=== PATIENT | male | born 1950 | race Caucasian/White ===

== ENCOUNTER 2020-03-24 08:18 | Inpatient (IN) | payer MEDICARE ==
--- NOTE | 2020-03-24 08:38 | ED ---
General Adult HPI - General Chief complaint: Shortness of Breath Stated complaint: +COVID Time Seen by Provider: 03/24/20 08:28 Source: patient, EMS Mode of arrival: EMS Limitations: no limitations - History of Present Illness Initial comments: Dictation was produced using [employer] dictation software. please excuse any grammatical, word or spelling errors. This patient was cared for during a federal and state declared state of emergency secondary to Covid 19 Chief Complaint: 69-year-old male with past medical history of rectal bleeding presents today with shortness of breath History of Present Illness: 69-year-old male tested positive for coronavirus 6 days ago. He's been short of breath for approximately one week. Patient states he's been dyspneic. He was seen his primary care physician's office approximately one week ago where he was tested and had a positive result. Patient was at home when he has been progressively become more short of breath. Denies any constitutional symptoms. No fevers. called EMS. Patient states that been progressively more dyspneic. He denies any chest pain. No lower extremity symptoms. No history of blood clots. Denies any serious comorbidities. EMS reports the patient was hypoxic into the 70% on room air. He does not lie on chronic supplemental oxygen. The ROS documented in this emergency department record has been reviewed and confirmed by me. Those systems with pertinent positive or negative responses have been documented in the HPI. All other systems are other negative and/or noncontributory. PHYSICAL EXAM: General Impression: Alert and oriented x3 HEENT: Normocephalic atraumatic, extra-ocular movements intact, pupils equal and reactive to light bilaterally, mucous membranes moist. Cardiovascular: Heart regular rate and rhythm Chest: 6 word sentences, no retractions, no tachypnea, mildly dyspneic Abdomen: abdomen soft, non-tender, non-distended, no organomegaly Musculoskeletal: Pulses present and equal in all extremities, no peripheral edema Motor: no focal deficits noted Neurological: CN II-XII grossly intact, no focal motor or sensory deficits noted Skin: Intact with no visualized rashes Psych: Normal affect and mood ED course: 69-year-old male presents with Covid 19 syndrome. Vital signs upon arrival shows 91% on 6 L nasal cannula, heart rate of 102. He has respiratory rate of 20 and does appear mildly dyspneic. After evaluation obtained. CBC is unremarkable. There is level cytopenia. Coag panel is negative. D-dimer is elevated 1.99 CT of the chest shows no evidence of pulmonary embolism. Metabolic panel shows sodium 132. BUN of 25. Lactic acidosis 2.3. CRP 166, lactate dehydrogenase of 1270. Chest x-ray shows bilateral diffuse infiltrates. Clinical presentation consistent with: 19 pneumonia. Patient given 50 mg of Decadron. Pulmonology was consulted. They ordered rib does appear from patient. Patient be admitted to the hospital for hypoxic respiratory failure secondary to: 19 pneumonia. Patient is agreeable with plan. At this point he is stable on supplemental oxygen. No indication for ICU admission at this time given ICU bed shortages during this current pandemic. EKG interpretation: Ventricular rate 101, sinus tachycardia, AZ interval 142, QRS 86, QTC 453. No AZ prolongation, no QTC prolongation, no ST or T-wave changes noted. Overall, this EKG is unremarkable - Related Data Home Medications Medication Instructions Recorded Confirmed No Known Home Medications 03/24/20 03/24/20 Allergies Allergy/AdvReac Type Severity Reaction Status Date / Time No Known Allergies Allergy Verified 03/24/20 09:29 Review of Systems ROS Statement: Those systems with pertinent positive or pertinent negative responses have been documented in the HPI. ROS Other: All systems not noted in ROS Statement are negative. Past Medical History Past Medical History: Respiratory Disorder Additional Past Medical History / Comment(s): CURRENT: RECTAL BLEEDING, HGB HAS DROPPED FROM 15 TO 7 IN THE PAST SEVERAL MONTHS. DIVERTICULOSIS. History of Any Multi-Drug Resistant Organisms: None Reported Past Surgical History: No Surgical Hx Reported Additional Past Surgical History / Comment(s): BILATERAL CATARACT WITH IMPLANTS Past Anesthesia/Blood Transfusion Reactions: No Reported Reaction Past Psychological History: No Psychological Hx Reported Smoking Status: Never smoker Past Alcohol Use History: None Reported Past Drug Use History: None Reported General Exam Limitations: no limitations Course Vital Signs 03/24/20 03/24/20 08:20 08:28 Temperature 98.0 F Pulse Rate 102 H Respiratory 18 20 Rate Blood Pressure 105/72 O2 Sat by Pulse 91 L Oximetry Medical Decision Making - Lab Data Result diagrams: 03/24/20 08:33 03/24/20 08:33 Lab Results 03/24/20 03/24/20 03/24/20 Range/Units 08:33 08:33 08:33 WBC 4.6 (3.8-10.6) k/uL RBC 5.02 (4.30-5.90) m/uL Hgb 14.6 (13.0-17.5) gm/dL Hct 43.0 (39.0-53.0) % MCV 85.6 (80.0-100.0) fL MCH 29.2 (25.0-35.0) pg MCHC 34.1 (31.0-37.0) g/dL RDW 14.2 (11.5-15.5) % Plt Count 209 (150-450) k/uL MPV 8.0 Neutrophils % 87 % Lymphocytes % 8 % Monocytes % 2 % Eosinophils % 1 % Basophils % 1 % Neutrophils # 4.0 (1.3-7.7) k/uL Lymphocytes # 0.4 L (1.0-4.8) k/uL Monocytes # 0.1 (0-1.0) k/uL Eosinophils # 0.0 (0-0.7) k/uL Basophils # 0.0 (0-0.2) k/uL PT 10.3 (9.0-12.0) sec INR 1.0 (<1.2) APTT 24.5 (22.0-30.0) sec Fibrinogen (200-500) mg/dL D-Dimer 1.99 H (<0.60) mg/L FEU Sodium 132 L (137-145) mmol/L Potassium 3.6 (3.5-5.1) mmol/L Chloride 95 L (98-107) mmol/L Carbon Dioxide 31 H (22-30) mmol/L Anion Gap 6 mmol/L BUN 25 H (9-20) mg/dL Creatinine 1.03 (0.66-1.25) mg/dL Est GFR (CKD-EPI)AfAm 84 (>60 ml/min/1.73 sqM) Est GFR (CKD-EPI)NonAf 73 (>60 ml/min/1.73 sqM) Glucose 114 H (74-99) mg/dL Lactic Ac Sepsis Rflx Plasma Lactic Acid Chuy (0.7-2.0) mmol/L Calcium 8.5 (8.4-10.2) mg/dL Magnesium 2.6 H (1.6-2.3) mg/dL Total Bilirubin 1.7 H (0.2-1.3) mg/dL AST 78 H (17-59) U/L ALT 43 (4-49) U/L Alkaline Phosphatase 67 (38-126) U/L Lactate Dehydrogenase 1270 H (313-618) U/L Creatine Kinase (55-170) U/L C-Reactive Protein 166.3 H (<10.0) mg/L Total Protein 6.4 (6.3-8.2) g/dL Albumin 3.1 L (3.5-5.0) g/dL 03/24/20 03/24/20 03/24/20 Range/Units 08:33 08:33 08:33 WBC (3.8-10.6) k/uL RBC (4.30-5.90) m/uL Hgb (13.0-17.5) gm/dL Hct (39.0-53.0) % MCV (80.0-100.0) fL MCH (25.0-35.0) pg MCHC (31.0-37.0) g/dL RDW (11.5-15.5) % Plt Count (150-450) k/uL MPV Neutrophils % % Lymphocytes % % Monocytes % % Eosinophils % % Basophils % % Neutrophils # (1.3-7.7) k/uL Lymphocytes # (1.0-4.8) k/uL Monocytes # (0-1.0) k/uL Eosinophils # (0-0.7) k/uL Basophils # (0-0.2) k/uL PT (9.0-12.0) sec INR (<1.2) APTT (22.0-30.0) sec Fibrinogen 641 H (200-500) mg/dL D-Dimer (<0.60) mg/L FEU Sodium (137-145) mmol/L Potassium (3.5-5.1) mmol/L Chloride (98-107) mmol/L Carbon Dioxide (22-30) mmol/L Anion Gap mmol/L BUN (9-20) mg/dL Creatinine (0.66-1.25) mg/dL Est GFR (CKD-EPI)AfAm (>60 ml/min/1.73 sqM) Est GFR (CKD-EPI)NonAf (>60 ml/min/1.73 sqM) Glucose (74-99) mg/dL Lactic Ac Sepsis Rflx Plasma Lactic Acid Chuy 2.3 H* (0.7-2.0) mmol/L Calcium (8.4-10.2) mg/dL Magnesium (1.6-2.3) mg/dL Total Bilirubin (0.2-1.3) mg/dL AST (17-59) U/L ALT (4-49) U/L Alkaline Phosphatase (38-126) U/L Lactate Dehydrogenase (313-618) U/L Creatine Kinase 223 H (55-170) U/L C-Reactive Protein (<10.0) mg/L Total Protein (6.3-8.2) g/dL Albumin (3.5-5.0) g/dL 03/24/20 Range/Units 09:18 WBC (3.8-10.6) k/uL RBC (4.30-5.90) m/uL Hgb (13.0-17.5) gm/dL Hct (39.0-53.0) % MCV (80.0-100.0) fL MCH (25.0-35.0) pg MCHC (31.0-37.0) g/dL RDW (11.5-15.5) % Plt Count (150-450) k/uL MPV Neutrophils % % Lymphocytes % % Monocytes % % Eosinophils % % Basophils % % Neutrophils # (1.3-7.7) k/uL Lymphocytes # (1.0-4.8) k/uL Monocytes # (0-1.0) k/uL Eosinophils # (0-0.7) k/uL Basophils # (0-0.2) k/uL PT (9.0-12.0) sec INR (<1.2) APTT (22.0-30.0) sec Fibrinogen (200-500) mg/dL D-Dimer (<0.60) mg/L FEU Sodium (137-145) mmol/L Potassium (3.5-5.1) mmol/L Chloride (98-107) mmol/L Carbon Dioxide (22-30) mmol/L Anion Gap mmol/L BUN (9-20) mg/dL Creatinine (0.66-1.25) mg/dL Est GFR (CKD-EPI)AfAm (>60 ml/min/1.73 sqM) Est GFR (CKD-EPI)NonAf (>60 ml/min/1.73 sqM) Glucose (74-99) mg/dL Lactic Ac Sepsis Rflx Y Plasma Lactic Acid Chuy (0.7-2.0) mmol/L Calcium (8.4-10.2) mg/dL Magnesium (1.6-2.3) mg/dL Total Bilirubin (0.2-1.3) mg/dL AST (17-59) U/L ALT (4-49) U/L Alkaline Phosphatase (38-126) U/L Lactate Dehydrogenase (313-618) U/L Creatine Kinase (55-170) U/L C-Reactive Protein (<10.0) mg/L Total Protein (6.3-8.2) g/dL Albumin (3.5-5.0) g/dL Critical Care Time Critical Care Time: Yes Total Critical Care Time: 33 Disposition Clinical Impression: COVID-19 Disposition: ADMITTED IP TO THIS [facility] Condition: Critical Referrals: Abdi Gage MD [STAFF PHYSICIAN] - 1-2 days Decision Time: 11:48
[2020-03-24 09:00] LABS: Basophils % (A) 1 %; Eosinophils % (A) 1 %; HGB 14.6 gm/dL (13.0-17.5); Lymphocytes # (A) 0.4 k/uL (1.0-4.8); Lymphocytes % (A) 8 %; MCH 29.2 pg (25.0-35.0); MCHC 34.1 g/dL (31.0-37.0); MCV 85.6 fL (80.0-100.0); Monocytes # (A) 0.1 k/uL (0-1.0); Monocytes % (A) 2 %; Neutrophils % (A) 87 %; Platelet Count 209 k/uL (150-450); RBC 5.02 m/uL (4.30-5.90); RDW 14.2 % (11.5-15.5); WBC 4.6 k/uL (3.8-10.6)
[2020-03-24 09:15] LABS: Albumin 3.1 g/dL (3.5-5.0); Calcium 8.5 mg/dL (8.4-10.2); Magnesium 2.6 mg/dL (1.6-2.3); Partial Thromboplastin Time 24.5 sec (22.0-30.0); Potassium 3.6 mmol/L (3.5-5.1); Prothrombin Time 10.3 sec (9.0-12.0); Total Bilirubin 1.7 mg/dL (0.2-1.3); Total Protein 6.4 g/dL (6.3-8.2)
[2020-03-24 09:26] LABS: C Reactive Protein 166.3 mg/L (<10.0)
--- NOTE | 2020-03-24 09:37 | XR ---
EXAMINATION TYPE: XR chest 1V portable DATE OF EXAM: 03/24/2020 COMPARISON: NONE HISTORY: Shortness of breath TECHNIQUE: Single frontal view of the chest is obtained. FINDINGS: Diffuse bilateral airspace disease. Tiny bilateral effusions. No pneumothorax. Heart size prominent. Arthropathy of the shoulders. IMPRESSION: Diffuse bilateral airspace disease correlate for pneumonia.
[2020-03-24] MEDS ORDERED: DEXAMETHASONE SOD PHOSPHATE 10 MG/ML 1 ML VIAL IV STA (09:42)
[2020-03-24] MEDS ORDERED: ACETAMINOPHEN TAB 325 MG TAB PO PRN (10:08)
[2020-03-24] MEDS ORDERED: SODIUM CHLORIDE 0.9% 1,000 ML IV STA (10:12)
[2020-03-24] MEDS ORDERED: ENOXAPARIN 80 MG/0.8 ML SYRINGE SQ SCH (10:15)
[2020-03-24 10:44] LABS: D-Dimer 1.99 mg/L FEU (<0.60)
[2020-03-24] MEDS ORDERED: REMDESIVIR (EUA) 200 MG in SODIUM CHLORIDE 0.9% 250 ML IVPB ONE (11:00)
--- NOTE | 2020-03-24 11:42 | CT ---
EXAMINATION TYPE: CT angio chest DATE OF EXAM: 03/24/2020 COMPARISON: None HISTORY: Elevated D dimer CT DLP: 371.7 mGycm CONTRAST: CT chest with contrast and 3D reconstruction with MIP imaging is performed with IV Contrast, patient injected with 75 mL of Isovue 370. Contrast-enhanced CT of the chest was performed through the course of the pulmonary arteries with yvonne g and mediastinal window settings submitted. 3D reconstruction with MIP imaging was also performed. PULMONARY ARTERIES: The pulmonary arteries and their major tributaries are patent. I do not see kameron dence for sizable filling defect to suggest pulmonary embolic process. LUNGS: Diffuse airspace disease is seen bilaterally. Correlate for underlying Covid 19 pneumonia. No pleural seen. MEDIASTINUM: Thoracic aorta is of normal caliber,however, evaluation is limited given timing of the contrast bolus. If there is concern for thoracic aortic pathology consider HA. Correlate clinicall y . The heart is not enlarged. No evidence for mediastinal mass. No mediastinal lymph nodes greater than 1cm. HILAR STRUCTURES: No evidence for mass. No hilar lymph nodes greater than 1 cm. UPPER ABDOMEN: No significant abnormality is seen. IMPRESSION: 1. No evidence for Pulmonary embolism at this time. 2. Correlate for Covid 19 pneumonia.
[2020-03-24] MEDS: ENOXAPARIN 40 MG/0.4 ML SYRINGE SQ SCH (11:43)
[2020-03-24] MEDS ORDERED: NALOXONE 0.4 MG/ML 1 ML VIAL IV PRN (11:48)
[2020-03-24 15:31] LABS: Ferritin 912.2 ng/mL (22.0-322.0)
[2020-03-24] MEDS: ZINC SULFATE 220 MG CAP PO SCH (16:50)
[2020-03-24] MEDS: SODIUM CHLORIDE 0.9% 1,000 ML IV SCH (16:50)
[2020-03-24] MEDS: FAMOTIDINE 20 MG TAB PO SCH ×2 (16:50→21:21)
--- NOTE | 2020-03-24 18:06 | P.CNPUL ---
History of Present Illness Consult date: 03/24/20 Requesting physician: Andriy Aguilar Reason for consult: dyspnea, hypoxemia, pneumonia Chief complaint: Shortness of breath, positive COVID 19 test, hypoxemia History of present illness: 69-year-old white male patient of Dr. Chester, who presented to the emergency department on 03/24/2020 with complaints of worsening shortness of breath, and patient tested positive for coronavirus 6 days ago. His been short of breath for approximately one week, patient's was also having symptoms, and they were seen by their primary care provider a week ago and both tested positive. Patient was experiencing progressive shortness of breath. Denies any fevers, his called EMS today, he was brought into the emergency department. Denies any chest pain, denies any significant cough, his pulse ox was only 70% on room air in the ambulance. She was placed on supplemental oxygen, currently on 6 L per high flow nasal cannula his pulse ox of 92%. Chest x-ray showed diffuse bilateral airspace disease, lab work was reviewed showing lymphopenia with lymphocyte count of 0.4, d-dimer of 1.99, sodium 132, potassium is 3.6, chloride is 95, CO2 31, B1 is 25 creatinine is 1.03, plasma lactic acid is 2.3, AST was 78, ALT and alkaline phosphatase were within normal limits, ferritin and fibrinogen were elevated, at 912, and 641 respectively, LDH was 1270, and CRP was 166, pro calcitonin level was 0.51. CTA chest showed no evidence of pulmonary embolism, it did show diffuse airspace disease bilaterally. Patient has had low-grade fevers while in the emergency department, his oxygenation needs increased from 6 L to 15 L, his pulse ox is 91%, he was started on IV Decadron, we started the patient on Remdesivir today, he is on Pepcid, he is on Lovenox 40 mg every 24 hours, he is on IV hydration with point in the setting at a rate of 75 ML per hour. Review of Systems All systems: negative Constitutional: Denies chills, Denies fever Eyes: denies blurred vision, denies pain Ears, nose, mouth and throat: Denies headache, Denies sore throat Cardiovascular: Denies chest pain, Denies shortness of breath Respiratory: Reports dyspnea, Denies cough Gastrointestinal: Denies abdominal pain, Denies diarrhea, Denies nausea, Denies vomiting Musculoskeletal: Denies myalgias Integumentary: Denies pruritus, Denies rash Neurological: Denies numbness, Denies weakness Psychiatric: Denies anxiety, Denies depression Endocrine: Denies fatigue, Denies weight change Past Medical History Past Medical History: Respiratory Disorder Additional Past Medical History / Comment(s): CURRENT: RECTAL BLEEDING, HGB HAS DROPPED FROM 15 TO 7 IN THE PAST SEVERAL MONTHS. DIVERTICULOSIS. History of Any Multi-Drug Resistant Organisms: None Reported Past Surgical History: No Surgical Hx Reported Additional Past Surgical History / Comment(s): BILATERAL CATARACT WITH IMPLANTS Past Anesthesia/Blood Transfusion Reactions: No Reported Reaction Past Psychological History: No Psychological Hx Reported Smoking Status: Never smoker Past Alcohol Use History: None Reported Past Drug Use History: None Reported Medications and Allergies Home Medications Medication Instructions Recorded Confirmed Type No Known Home Medications 03/24/20 03/24/20 History Allergies Allergy/AdvReac Type Severity Reaction Status Date / Time No Known Allergies Allergy Verified 03/24/20 09:29 Physical Exam Vitals: Vital Signs Temp Pulse Resp BP Pulse Ox 03/24/20 17:38 94 18 120/98 91 L 03/24/20 16:52 98.6 F 88 16 126/81 92 L 03/24/20 13:50 99.6 F 93 16 127/78 92 L 03/24/20 11:51 99.8 F H 96 18 117/81 90 L 03/24/20 08:28 20 03/24/20 08:20 98.0 F 102 H 18 105/72 91 L Intake and Output 03/24/20 03/24/20 03/24/20 06:59 14:59 22:59 Other: Weight 77.111 kg GENERAL EXAM: Alert, pleasant, 69-year-old white male, on 6 L of oxygen and the pulse ox of 92%, comfortable in no apparent distress. HEAD: Normocephalic/atraumatic. EYES: Normal reaction of pupils, equal size. Conjunctiva pink, sclera white. NOSE: Clear with pink turbinates. THROAT: No erythema or exudates. NECK: No masses, no JVD, no thyroid enlargement, no adenopathy. CHEST: No chest wall deformity. Symmetrical expansion. LUNGS: Equal air entry with no crackles, wheeze, rhonchi or dullness. CVS: Regular rate and rhythm, normal S1 and S2, no gallops, no murmurs, no rubs ABDOMEN: Soft, nontender. No hepatosplenomegaly, normal bowel sounds, no guarding or rigidity. EXTREMITIES: No clubbing, no edema, no cyanosis, 2+ pulses and upper and lower extremities. MUSCULOSKELETAL: Muscle strength and tone normal. SPINE: No scoliosis or deformity SKIN: No rashes CENTRAL NERVOUS SYSTEM: Alert and oriented -3. No focal deficits, tone is normal in all 4 extremities. PSYCHIATRIC: Alert and oriented -3. Appropriate affect. Intact judgment and insight. Results - Laboratory Findings CBC and BMP: 03/24/20 08:33 03/24/20 08:33 PT/INR, D-dimer PT 10.3 sec (9.0-12.0) 03/24/20 08:33 INR 1.0 (<1.2) 03/24/20 08:33 D-Dimer 1.99 mg/L FEU (<0.60) H 03/24/20 08:33 Abnormal lab findings: Abnormal Labs 03/24/20 03/24/20 03/24/20 08:33 08:33 08:33 Lymphocytes # 0.4 L Fibrinogen D-Dimer 1.99 H Sodium 132 L Chloride 95 L Carbon Dioxide 31 H BUN 25 H Glucose 114 H Plasma Lactic Acid Chuy Magnesium 2.6 H Ferritin 912.2 H Total Bilirubin 1.7 H AST 78 H Lactate Dehydrogenase 1270 H Creatine Kinase C-Reactive Protein 166.3 H Albumin 3.1 L Procalcitonin 03/24/20 03/24/20 03/24/20 08:33 08:33 08:33 Lymphocytes # Fibrinogen 641 H D-Dimer Sodium Chloride Carbon Dioxide BUN Glucose Plasma Lactic Acid Chuy 2.3 H* Magnesium Ferritin Total Bilirubin AST Lactate Dehydrogenase Creatine Kinase C-Reactive Protein Albumin Procalcitonin 0.51 H 03/24/20 08:33 Lymphocytes # Fibrinogen D-Dimer Sodium Chloride Carbon Dioxide BUN Glucose Plasma Lactic Acid Chuy Magnesium Ferritin Total Bilirubin AST Lactate Dehydrogenase Creatine Kinase 223 H C-Reactive Protein Albumin Procalcitonin - Diagnostic Findings Chest x-ray: report reviewed, image reviewed CT scan - chest: report reviewed, image reviewed Assessment and Plan Plan: Assessment: #1. Acute and severe hypoxic respiratory failure related to acute Covid 19 related pneumonia, started on Remdesivir, with onset of symptoms of weeks ago #2. Shortness of breath, severe hypoxemia related to the above #3. Increased inflammatory markers related acute coronavirus infection #4. Spouse positive for Covid 19 infection #5. Never smoker Plan: Continue Decadron, started on Remdesivir, Lovenox, gentle IV hydration, zinc sulfate, vitamin C, Pepcid, vitamin D, continue to follow inflammatory markers, oxygenation pattern and febrile pattern. We'll continue to follow I performed a history & physical examination of the patient and discussed their management with my nurse practitioner, Araseli Leo. I reviewed the nurse practitioner's note and agree with the documented findings and plan of care. Lung sounds are positive for diminished breath sounds The findings and the impression was discussed with the patient. I attest to the documentation by the nurse practitioner. Time with Patient: Greater than 30
[2020-03-24] MEDS ORDERED: ONDANSETRON 4 MG/2 ML VIAL IVP PRN (19:06)
[2020-03-24] MEDS ORDERED: MAG HYDROX/AL HYDROX/SIMETH 30 ML CUP PO PRN (19:06)
[2020-03-24] MEDS ORDERED: CALCIUM CARBONATE 500 MG CHEWABLE PO PRN (19:06)
[2020-03-24] MEDS ORDERED: MAGNESIUM HYDROXIDE 2,400 MG/10 ML CUP PO PRN (19:06)
[2020-03-24] MEDS ORDERED: LACTULOSE 20 GM/30 ML CUP PO PRN (19:06)
--- NOTE | 2020-03-24 19:06 | P.HPIM ---
History of Present Illness H&P Date: 03/24/20 Chief Complaint: Short of breath History of presenting complaint: This is a pleasant 69-year-old patient of Dr. Chester. Patient tested positive for COVID 6 days ago. Patient has been progressively getting more and more short of breath. He was tested positive and his family doctor. His current decreased appetite. Diet. Loss of taste. No diarrhea. Some mild GI. EMS r eported patient to be hypoxic and a 70% on room air. Prior to this patient is feeling fine. Patient did not report any fever. He was 91% on 6 L in the ER. Review of systems: GEN.: Tired loss of appetite weak EYES: None HEENT: None NECK: None RESPIRATORY: As above CARDIOVASCULAR: None GASTROINTESTINAL: None GENITOURINARY: None MUSCULOSKELETAL: None LYMPHATICS: None HEMATOLOGICAL: None PSYCHIATRY: None NEUROLOGICAL: None INVESTIGATIONS, reviewed in the clinical context: White count 4.6 hemoglobin 14.6 platelets 209 lymphocyte 0.4 d-dimer 1.99 sodium 132 potassium 3.6 bun 25 creatinine 1.03 Lactic acid 2.3 LDH 1270 CRP 166.3 albumin 3.10 calcitonin 0.51 EKG tracing personally reviewed by me-normal sinus rhythm, rate of 101 CT angina chest-negative for PE. Diffuse airspace disease bilaterally. Chest x-ray film personally reviewed by me-bilateral infiltrates Assessment: -Acute bilateral pneumonia from COVID 19 diagnosed a week prior to presentation. -Acute hypoxic respiratory failure from above -Lactic acidosis from above -Mild hyponatremia from decreased fluid intake -Clinical dehydration -Hypoalbuminemia-acute phase reactant Plan: Patient be started on steroids, Lovenox, zinc, Pepcid, vitamin D3. Remdesivir. Oxygen supplemented. Droplet precaution. Care was discussed with the patient question also. Pulmonary consulted. Past Medical History Past Medical History: Respiratory Disorder Additional Past Medical History / Comment(s): CURRENT: RECTAL BLEEDING, HGB HAS DROPPED FROM 15 TO 7 IN THE PAST SEVERAL MONTHS. DIVERTICULOSIS. History of Any Multi-Drug Resistant Organisms: None Reported Past Surgical History: No Surgical Hx Reported Additional Past Surgical History / Comment(s): BILATERAL CATARACT WITH IMPLANTS Past Anesthesia/Blood Transfusion Reactions: No Reported Reaction Past Psychological History: No Psychological Hx Reported Smoking Status: Never smoker Past Alcohol Use History: None Reported Past Drug Use History: None Reported Medications and Allergies Home Medications Medication Instructions Recorded Confirmed Type No Known Home Medications 03/24/20 03/24/20 History Allergies Allergy/AdvReac Type Severity Reaction Status Date / Time No Known Allergies Allergy Verified 03/24/20 09:29 Physical Exam Vitals: Vital Signs Temp Pulse Resp BP Pulse Ox 03/24/20 18:35 98.5 F 88 16 109/71 93 L 03/24/20 17:38 94 18 120/98 91 L 03/24/20 16:52 98.6 F 88 16 126/81 92 L 03/24/20 13:50 99.6 F 93 16 127/78 92 L 03/24/20 11:51 99.8 F H 96 18 117/81 90 L 03/24/20 08:28 20 03/24/20 08:20 98.0 F 102 H 18 105/72 91 L Intake and Output 03/24/20 03/24/20 03/24/20 06:59 14:59 22:59 Other: Weight 77.111 kg Results CBC & Chem 7: 03/24/20 08:33 03/24/20 08:33 Labs: Abnormal Lab Results - Last 24 Hours (Table) 03/24/20 03/24/20 03/24/20 Range/Units 08:33 08:33 08:33 Lymphocytes # 0.4 L (1.0-4.8) k/uL Fibrinogen (200-500) mg/dL D-Dimer 1.99 H (<0.60) mg/L FEU Sodium 132 L (137-145) mmol/L Chloride 95 L (98-107) mmol/L Carbon Dioxide 31 H (22-30) mmol/L BUN 25 H (9-20) mg/dL Glucose 114 H (74-99) mg/dL Plasma Lactic Acid Chuy (0.7-2.0) mmol/L Magnesium 2.6 H (1.6-2.3) mg/dL Ferritin 912.2 H (22.0-322.0) ng/mL Total Bilirubin 1.7 H (0.2-1.3) mg/dL AST 78 H (17-59) U/L Lactate Dehydrogenase 1270 H (313-618) U/L Creatine Kinase (55-170) U/L C-Reactive Protein 166.3 H (<10.0) mg/L Albumin 3.1 L (3.5-5.0) g/dL Procalcitonin (0.02-0.09) ng/mL 03/24/20 03/24/20 03/24/20 Range/Units 08:33 08:33 08:33 Lymphocytes # (1.0-4.8) k/uL Fibrinogen 641 H (200-500) mg/dL D-Dimer (<0.60) mg/L FEU Sodium (137-145) mmol/L Chloride (98-107) mmol/L Carbon Dioxide (22-30) mmol/L BUN (9-20) mg/dL Glucose (74-99) mg/dL Plasma Lactic Acid Chuy 2.3 H* (0.7-2.0) mmol/L Magnesium (1.6-2.3) mg/dL Ferritin (22.0-322.0) ng/mL Total Bilirubin (0.2-1.3) mg/dL AST (17-59) U/L Lactate Dehydrogenase (313-618) U/L Creatine Kinase (55-170) U/L C-Reactive Protein (<10.0) mg/L Albumin (3.5-5.0) g/dL Procalcitonin 0.51 H (0.02-0.09) ng/mL 03/24/20 Range/Units 08:33 Lymphocytes # (1.0-4.8) k/uL Fibrinogen (200-500) mg/dL D-Dimer (<0.60) mg/L FEU Sodium (137-145) mmol/L Chloride (98-107) mmol/L Carbon Dioxide (22-30) mmol/L BUN (9-20) mg/dL Glucose (74-99) mg/dL Plasma Lactic Acid Chuy (0.7-2.0) mmol/L Magnesium (1.6-2.3) mg/dL Ferritin (22.0-322.0) ng/mL Total Bilirubin (0.2-1.3) mg/dL AST (17-59) U/L Lactate Dehydrogenase (313-618) U/L Creatine Kinase 223 H (55-170) U/L C-Reactive Protein (<10.0) mg/L Albumin (3.5-5.0) g/dL Procalcitonin (0.02-0.09) ng/mL
[2020-03-24] MEDS: MELATONIN 5 MG TABLET PO SCH (21:21)
[2020-03-24] MEDS: methylPREDNISolone SOD SUCCI 40 MG/ML 1 ML VIAL IV SCH (23:31)
[2020-03-25 06:24] LABS: Glucose,Whole Blood 133 mg/dL (75-99)
[2020-03-25] MEDS: INSULIN ASPART (NovoLOG) 100 UNIT/ML VIAL SQ SCH ×3 (06:29→16:40)
[2020-03-25] MEDS: methylPREDNISolone SOD SUCCI 40 MG/ML 1 ML VIAL IV SCH ×3 (08:08→23:22)
[2020-03-25] MEDS: FAMOTIDINE 20 MG TAB PO SCH ×2 (08:09→20:48)
[2020-03-25] MEDS: CHOLECALCIFEROL 400 UNIT TAB PO SCH (08:09)
[2020-03-25] MEDS: ZINC SULFATE 220 MG CAP PO SCH (08:09)
[2020-03-25] MEDS: ENOXAPARIN 40 MG/0.4 ML SYRINGE SQ SCH (08:09)
[2020-03-25] MEDS ORDERED: dexAMETHasone 2 MG TAB PO SCH (09:00)
[2020-03-25 10:02] LABS: Basophils % (A) 0 %; Eosinophils % (A) 0 %; HCT 46.2 % (39.0-53.0); HGB 14.9 gm/dL (13.0-17.5); Lymphocytes # (A) 0.3 k/uL (1.0-4.8); Lymphocytes % (A) 6 %; MCH 28.1 pg (25.0-35.0); MCHC 32.4 g/dL (31.0-37.0); Monocytes # (A) 0.1 k/uL (0-1.0); Monocytes % (A) 2 %; Neutrophils # (A) 3.5 k/uL (1.3-7.7); Neutrophils % (A) 89 %; Platelet Count 267 k/uL (150-450); RBC 5.31 m/uL (4.30-5.90); RDW 14.6 % (11.5-15.5); WBC 3.9 k/uL (3.8-10.6)
[2020-03-25 10:25] LABS: ALT 39 U/L (4-49); AST 67 U/L (17-59); African American GFR (CKD) >90 (>60 ml/min/1.73 sqM); Alkaline Phosphatase 82 U/L (38-126); Anion Gap 8 mmol/L; Blood Urea Nitrogen 24 mg/dL (9-20); Calcium 8.4 mg/dL (8.4-10.2); Carbon Dioxide 27 mmol/L (22-30); Chloride 100 mmol/L (98-107); Glucose 122 mg/dL (74-99); LDH 1180 U/L (313-618); Non-African American GFR(CKD) 89 (>60 ml/min/1.73 sqM); Potassium 4.1 mmol/L (3.5-5.1); Sodium 135 mmol/L (137-145); Total Bilirubin 1.8 mg/dL (0.2-1.3); Total Protein 6.2 g/dL (6.3-8.2)
[2020-03-25 10:55] LABS: C Reactive Protein 169.4 mg/L (<10.0)
[2020-03-25 11:53] LABS: Glucose,Whole Blood 120 mg/dL (75-99)
[2020-03-25] MEDS: REMDESIVIR (EUA) 100 MG in SODIUM CHLORIDE 0.9% 250 ML IVPB SCH (12:03)
[2020-03-25] MEDS: SODIUM CHLORIDE 0.9% 1,000 ML IV SCH (12:56)
[2020-03-25 15:46] LABS: Ferritin 1475.7 ng/mL (22.0-322.0)
[2020-03-25 16:36] LABS: Glucose,Whole Blood 112 mg/dL (75-99)
--- NOTE | 2020-03-25 18:39 | P.PN ---
Subjective Progress Note Date: 03/25/20 Principal diagnosis: Shortness of breath, COVID19 pneumonia, hypoxemia 69-year-old white male patient of Dr. Chester, who presented to the emergency department on 03/24/2020 with complaints of worsening shortness of breath, and patient tested positive for coronavirus 6 days ago. His been short of breath for approximately one week, patient's was also having symptoms, and they were seen by their primary care provider a week ago and both tested positive. Patient was experiencing progressive shortness of breath. Denies any fevers, his called EMS today, he was brought into the emergency department. Denies any chest pain, denies any significant cough, his pulse ox was only 70% on room air in the ambulance. She was placed on supplemental oxygen, currently on 6 L per high flow nasal cannula his pulse ox of 92%. Chest x-ray showed diffuse bilateral airspace disease, lab work was reviewed showing lymphopenia with lymphocyte count of 0.4, d-dimer of 1.99, sodium 132, potassium is 3.6, chloride is 95, CO2 31, B1 is 25 creatinine is 1.03, plasma lactic acid is 2.3, AST was 78, ALT and alkaline phosphatase were within normal limits, ferritin and fibrinogen were elevated, at 912, and 641 respectively, LDH was 1270, and CRP was 166, pro calcitonin level was 0.51. CTA chest showed no evidence of pulmonary embolism, it did show diffuse airspace disease bilaterally. Patient has had low-grade fevers while in the emergency department, his oxygenation needs increased from 6 L to 15 L, his pulse ox is 91%, he was started on IV Decadron, we started the patient on Remdesivir today, he is on Pepcid, he is on Lovenox 40 mg every 24 hours, he is on IV hydration with point in the setting at a rate of 75 ML per hour. On 03/25/2020 patient seen in follow-up on selective care unit. Remains on high flow oxygen, 15 L, and his pulse ox is between 91-93%, his been afebrile, his last episode of fever was last night at 2020, with a temp of 100.2F. Today is day 2 of Remdesivir, he is on IV steroids Solu-Medrol, 40 mg every 8 hours, he is on IV hydration, zinc, Pepcid, he is on prophylactic dose of Lovenox. Labs have been reviewed, still lymphopenia, with lymphocyte count of 0.3, the rest that CBC was unremarkable, sodium is 135, that is the electrolytes are unremarkable: BUN is 24, creatinine is 0.83. LDH and CRP are relatively stable, at 1180 and 169 respectively, pro calcitonin level came back elevated at 0.51. No chest pain, cough is improving. Patient reports feeling much better. No nausea or vomiting. Objective - Vital Signs Vital signs: Vital Signs Temp 98 F 03/25/20 16:00 Pulse 102 H 03/25/20 16:00 Resp 18 03/25/20 16:00 BP 137/84 03/25/20 16:00 Pulse Ox 91 L 03/25/20 16:00 Intake & Output 03/24/20 03/25/20 03/25/20 18:59 06:59 18:59 Intake Total 480 Output Total 588 200 Balance -588 280 Weight 77.111 kg 70.5 kg Intake: Oral 480 Output: Urine 420 200 Post Void Residual 168 Other: # Voids 1 - Exam GENERAL EXAM: Alert, pleasant, 69-year-old white male, on 15 L of oxygen and the pulse ox of 92%, comfortable in no apparent distress. HEAD: Normocephalic/atraumatic. EYES: Normal reaction of pupils, equal size. Conjunctiva pink, sclera white. NOSE: Clear with pink turbinates. THROAT: No erythema or exudates. NECK: No masses, no JVD, no thyroid enlargement, no adenopathy. CHEST: No chest wall deformity. Symmetrical expansion. LUNGS: Equal air entry with no crackles, wheeze, rhonchi or dullness. CVS: Regular rate and rhythm, normal S1 and S2, no gallops, no murmurs, no rubs ABDOMEN: Soft, nontender. No hepatosplenomegaly, normal bowel sounds, no guarding or rigidity. EXTREMITIES: No clubbing, no edema, no cyanosis, 2+ pulses and upper and lower extremities. MUSCULOSKELETAL: Muscle strength and tone normal. SPINE: No scoliosis or deformity SKIN: No rashes CENTRAL NERVOUS SYSTEM: Alert and oriented -3. No focal deficits, tone is normal in all 4 extremities. PSYCHIATRIC: Alert and oriented -3. Appropriate affect. Intact judgment and insight. - Labs CBC & Chem 7: 03/25/20 08:34 03/25/20 08:34 Labs: Abnormal Lab Results - Last 24 Hours (Table) 03/25/20 03/25/20 03/25/20 Range/Units 06:23 08:34 08:34 Lymphocytes # 0.3 L (1.0-4.8) k/uL Sodium 135 L (137-145) mmol/L BUN 24 H (9-20) mg/dL Glucose 122 H (74-99) mg/dL POC Glucose (mg/dL) 133 H (75-99) mg/dL Ferritin 1475.7 H (22.0-322.0) ng/mL Total Bilirubin 1.8 H (0.2-1.3) mg/dL AST 67 H (17-59) U/L Lactate Dehydrogenase 1180 H (313-618) U/L C-Reactive Protein 169.4 H (<10.0) mg/L Total Protein 6.2 L (6.3-8.2) g/dL Albumin 3.0 L (3.5-5.0) g/dL 03/25/20 03/25/20 Range/Units 11:49 16:35 Lymphocytes # (1.0-4.8) k/uL Sodium (137-145) mmol/L BUN (9-20) mg/dL Glucose (74-99) mg/dL POC Glucose (mg/dL) 120 H 112 H (75-99) mg/dL Ferritin (22.0-322.0) ng/mL Total Bilirubin (0.2-1.3) mg/dL AST (17-59) U/L Lactate Dehydrogenase (313-618) U/L C-Reactive Protein (<10.0) mg/L Total Protein (6.3-8.2) g/dL Albumin (3.5-5.0) g/dL Microbiology - Last 24 Hours (Table) 03/24/20 08:33 Blood Culture - Preliminary Blood No Growth after 24 hours Assessment and Plan Plan: Assessment: #1. Acute and severe hypoxic respiratory failure related to acute Covid 19 rel ated pneumonia, started on Remdesivir, with onset of symptoms of weeks ago #2. Shortness of breath, severe hypoxemia related to the above #3. Increased inflammatory markers related acute coronavirus infection #4. Spouse positive for Covid 19 infection #5. Never smoker #6. Increased blood calcitonin, rule out possibility of bacterial infection, we will add empiric antibiotics Plan: Continue with current medical treatment, Remdesivir, Decadron, Solu-Medrol, will add empiric antibiotics in the form of Augmentin, continue monitoring febrile pattern, follow-up chest x-ray tomorrow. I performed a history & physical examination of the patient and discussed their management with my nurse practitioner, Araseli Leo. I reviewed the nurse practitioner's note and agree with the documented findings and plan of care. Lung sounds are positive for diminished breath sounds The findings and the impression was discussed with the patient. I attest to the documentation by the nurse practitioner. Time with Patient: Less than 30
[2020-03-25 20:06] LABS: Glucose,Whole Blood 135 mg/dL (75-99)
[2020-03-25] MEDS: AMOXIC-POT CLAV 875-125MG 1 EACH TAB PO SCH (20:48)
[2020-03-25] MEDS: MELATONIN 5 MG TABLET PO SCH (20:48)
--- NOTE | 2020-03-25 21:05 | P.PN ---
Progress Note - Text Progress Note Date: 03/25/20 Chief Complaint: Short of breath History of presenting complaint: This is a pleasant 69-year-old patient of Dr. Chester. Patient tested positive for COVID 6 days ago. Patient has been progressively getting more and more short of breath. He was tested positive and his family doctor. His current decreased appetite. Diet. Loss of taste. No diarrhea. Some mild GI. EMS reported patient to be hypoxic and a 70% on room air. Prior to this patient is feeling fine. Patient did not report any fever. He was 91% on 6 L in the ER. Admitted with bilateral pneumonia from COVID 19, acute hypoxic respiratory failure, lactic acidosis, hyponatremia. Started on steroids Lovenox and Pepcid Remdesivir oxygen supplementation. Today-still short of breath at rest.-Oxygen. A little bit. Sitting up in bed. Review of systems: Was done for constitutional, cardiovascular, GI, pulmonary. relevant finding as above Active Medications Acetaminophen (Acetaminophen Tab 325 Mg Tab) 650 mg PO Q4HR PRN PRN Reason: Fever>101 Al Hydroxide/Mg Hydroxide (Mag Hydrox/Al Hydrox/Simeth 30 Ml Cup) 15 ml PO Q6HR PRN PRN Reason: Indigestion Amoxicillin/Clavulanate Potassium (Amoxic-Pot Clav 875-125mg 1 Each Tab) 1 each PO Q12HR [facility] Last Admin: 03/25/20 20:48 Dose: 1 each Documented by: Calcium Carbonate/Glycine (Calcium Carbonate 500 Mg Chewable) 1,000 mg PO Q4HR PRN PRN Reason: Dyspepsia Cholecalciferol (Cholecalciferol 400 Unit Tab) 400 unit PO DAILY [facility] Last Admin: 03/25/20 08:09 Dose: 400 unit Documented by: Enoxaparin Sodium (Enoxaparin 40 Mg/0.4 Ml Syringe) 40 mg SQ Q24HR [facility] Last Admin: 03/25/20 08:09 Dose: 40 mg Documented by: Famotidine (Famotidine 20 Mg Tab) 20 mg PO BID [facility] Last Admin: 03/25/20 20:48 Dose: 20 mg Documented by: Remdesivir 100 mg/ Sodium (Chloride) 250 mls @ 250 mls/hr IVPB Q24H [facility] Stop: 03/28/20 11:59 Last Admin: 03/25/20 12:03 Dose: 250 mls/hr Documented by: Sodium Chloride (Saline 0.9%) 1,000 mls @ 20 mls/hr IV .Q24H [facility] Last Admin: 03/25/20 12:56 Dose: Not Given Documented by: Insulin Aspart (Insulin Aspart (Novolog) 100 Unit/Ml Vial) 0 unit SQ AC-TID [facility]; Protocol Last Admin: 03/25/20 16:40 Dose: Not Given Documented by: Lactulose (Lactulose 20 Gm/30 Ml Cup) 20 gm PO DAILY PRN PRN Reason: Constipation Magnesium Hydroxide (Magnesium Hydroxide 2,400 Mg/10 Ml Cup) 2,400 mg PO DAILY PRN PRN Reason: Constipation Melatonin (Melatonin 5 Mg Tablet) 5 mg PO HS [facility] Last Admin: 03/25/20 20:48 Dose: 5 mg Documented by: Methylprednisolone Sodium Succinate (Methylprednisolone Sod Succi 40 Mg/Ml 1 Ml Vial) 40 mg IV Q8HR [facility] Last Admin: 03/25/20 16:06 Dose: 40 mg Documented by: Naloxone HCl (Naloxone 0.4 Mg/Ml 1 Ml Vial) 0.2 mg IV Q2M PRN PRN Reason: Opioid Reversal Ondansetron HCl (Ondansetron 4 Mg/2 Ml Vial) 4 mg IVP Q8HR PRN PRN Reason: Nausea And Vomiting Zinc Sulfate (Zinc Sulfate 220 Mg Cap) 220 mg PO DAILY [facility] Last Admin: 03/25/20 08:09 Dose: 220 mg Documented by: Physical examination: VITAL SIGNS: T-max 100.2, 89, 24, 108/70, 92% on 15 L GENERAL: [Sitting up in the bed, short of breath at rest PSYCH: [Alert and oriented x3; mood and affect anxious]l. Rest of exam as per nursing and pulmonary INVESTIGATIONS, reviewed in the clinical context: White count 3.9 hemoglobin 14.9 potassium 4.1 creatinine 0.83 CRP 169 Previous testing White count 4.6 hemoglobin 14.6 platelets 209 lymphocyte 0.4 d-dimer 1.99 sodium 132 potassium 3.6 bun 25 creatinine 1.03 Lactic acid 2.3 LDH 1270 CRP 166.3 albumin 3.10 calcitonin 0.51 EKG tracing personally reviewed by me-normal sinus rhythm, rate of 101 CT angina chest-negative for PE. Diffuse airspace disease bilaterally. Chest x-ray film personally reviewed by me-bilateral infiltrates Assessment: -Acute bilateral pneumonia from COVID 19 diagnosed a week prior to presentation.-Slow to respond -Acute hypoxic respiratory failure from above-on 15 L of oxygen-slow to respond -Lactic acidosis from above -Mild hyponatremia from decreased fluid intake -Clinical dehydration -Hypoalbuminemia-acute phase reactant Plan: We will change to therapeutic dose of Lovenox, Solu-Medrol continue zinc, Pepcid, vitamin D3. Remdesivir. Oxygen supplemented. Droplet precaution. Follow d-dimer, CRP
[2020-03-25] MEDS: ENOXAPARIN 60 MG/0.6 ML SYRINGE SQ SCH (23:23)
[2020-03-26 00:32] LABS: African American GFR (CKD) >90 (>60 ml/min/1.73 sqM); Anion Gap 10 mmol/L; Blood Urea Nitrogen 29 mg/dL (9-20); Calcium 8.9 mg/dL (8.4-10.2); Carbon Dioxide 26 mmol/L (22-30); Chloride 98 mmol/L (98-107); Glucose 146 mg/dL (74-99); Magnesium 2.6 mg/dL (1.6-2.3); Non-African American GFR(CKD) >90 (>60 ml/min/1.73 sqM); Potassium 3.5 mmol/L (3.5-5.1); Sodium 134 mmol/L (137-145)
[2020-03-26 06:03] LABS: Glucose,Whole Blood 138 mg/dL (75-99)
[2020-03-26] MEDS: INSULIN ASPART (NovoLOG) 100 UNIT/ML VIAL SQ SCH ×3 (06:26→17:23)
--- NOTE | 2020-03-26 07:44 | XR ---
EXAMINATION TYPE: XR chest 1V portable DATE OF EXAM: 03/26/2020 COMPARISON: Prior chest x-ray 03/24/2020 HISTORY: Shortness of breath TECHNIQUE: Single frontal view of the chest is obtained. FINDINGS: Findings are similar, bilateral airspace disease is present. There is no evident pneumotho rax or pleural effusion. Cardiac mediastinal silhouette is stable. There are overlying cardiac leads. IMPRESSION: Correlate for bilateral pneumonia.
[2020-03-26 08:14] LABS: Basophils % (A) 1 %; Eosinophils % (A) 0 %; HCT 49.7 % (39.0-53.0); HGB 16.3 gm/dL (13.0-17.5); Lymphocytes # (A) 0.2 k/uL (1.0-4.8); Lymphocytes % (A) 5 %; MCH 28.7 pg (25.0-35.0); MCHC 32.8 g/dL (31.0-37.0); MCV 87.5 fL (80.0-100.0); Mean Platelet Volume 7.8; Monocytes # (A) 0.2 k/uL (0-1.0); Monocytes % (A) 3 %; Neutrophils # (A) 4.5 k/uL (1.3-7.7); Neutrophils % (A) 89 %; Platelet Count 335 k/uL (150-450); RBC 5.67 m/uL (4.30-5.90); RDW 14.4 % (11.5-15.5)
[2020-03-26 08:31] LABS: D-Dimer 2.14 mg/L FEU (<0.60)
[2020-03-26 08:49] LABS: ALT 37 U/L (4-49); AST 54 U/L (17-59); African American GFR (CKD) >90 (>60 ml/min/1.73 sqM); Albumin 3.2 g/dL (3.5-5.0); Alkaline Phosphatase 85 U/L (38-126); Anion Gap 8 mmol/L; Blood Urea Nitrogen 28 mg/dL (9-20); Calcium 8.9 mg/dL (8.4-10.2); Carbon Dioxide 30 mmol/L (22-30); Chloride 97 mmol/L (98-107); Glucose 149 mg/dL (74-99); LDH 1243 U/L (313-618); Non-African American GFR(CKD) >90 (>60 ml/min/1.73 sqM); Potassium 3.7 mmol/L (3.5-5.1); Sodium 135 mmol/L (137-145); Total Bilirubin 1.5 mg/dL (0.2-1.3); Total Protein 6.7 g/dL (6.3-8.2)
[2020-03-26] MEDS: FAMOTIDINE 20 MG TAB PO SCH ×2 (09:25→20:10)
[2020-03-26] MEDS: AMOXIC-POT CLAV 875-125MG 1 EACH TAB PO SCH ×2 (09:25→20:10)
[2020-03-26] MEDS: methylPREDNISolone SOD SUCCI 40 MG/ML 1 ML VIAL IV SCH ×2 (09:25→17:22)
[2020-03-26] MEDS: CHOLECALCIFEROL 400 UNIT TAB PO SCH (09:25)
[2020-03-26] MEDS: ZINC SULFATE 220 MG CAP PO SCH (09:25)
[2020-03-26] MEDS: ENOXAPARIN 60 MG/0.6 ML SYRINGE SQ SCH ×2 (09:26→20:11)
[2020-03-26 10:27] LABS: C Reactive Protein 130.4 mg/L (<10.0)
[2020-03-26 11:18] LABS: Glucose,Whole Blood 138 mg/dL (75-99)
[2020-03-26] MEDS: SODIUM CHLORIDE 0.9% 1,000 ML IV SCH (12:10)
[2020-03-26] MEDS: REMDESIVIR (EUA) 100 MG in SODIUM CHLORIDE 0.9% 250 ML IVPB SCH (12:10)
--- NOTE | 2020-03-26 16:23 | P.PN ---
Subjective Progress Note Date: 03/26/20 Principal diagnosis: CoVID 19 pneumonia 69-year-old white male patient of Dr. Chester, who presented to the emergency department on 03/24/2020 with complaints of worsening shortness of breath, and patient tested positive for coronavirus 6 days ago. His been short of breath for approximately one week, patient's was also having symptoms, and they were seen by their primary care provider a week ago and both tested positive. Patient was experiencing progressive shortness of breath. Denies any fevers, his called EMS today, he was brought into the emergency department. Denies any chest pain, denies any significant cough, his pulse ox was only 70% on room air in the ambulance. She was placed on supplemental oxygen, currently on 6 L per high flow nasal cannula his pulse ox of 92%. Chest x-ray showed diffuse bilateral airspace disease, lab work was reviewed showing lymphopenia with lymphocyte count of 0.4, d-dimer of 1.99, sodium 132, potassium is 3.6, chloride is 95, CO2 31, B1 is 25 creatinine is 1.03, plasma lactic acid is 2.3, AST was 78, ALT and alkaline phosphatase were within normal limits, ferritin and fibrinogen were elevated, at 912, and 641 respectively, LDH was 1270, and CRP was 166, pro calcitonin level was 0.51. CTA chest showed no evidence of pulmonary embolism, it did show diffuse airspace disease bilaterally. Patient has had low-grade fevers while in the emergency department, his oxygenation needs increased from 6 L to 15 L, his pulse ox is 91%, he was started on IV Decadron, we started the patient on Remdesivir today, he is on Pepcid, he is on Lovenox 40 mg every 24 hours, he is on IV hydration with point in the setting at a rate of 75 ML per hour. On 03/25/2020 patient seen in follow-up on selective care unit. Remains on high flow oxygen, 15 L, and his pulse ox is between 91-93%, his been afebrile, his last episode of fever was last night at 2019, with a temp of 100.2F. Today is day 2 of Remdesivir, he is on IV steroids Solu-Medrol, 40 mg every 8 hours, he is on IV hydration, zinc, Pepcid, he is on prophylactic dose of Lovenox. Labs have been reviewed, still lymphopenia, with lymphocyte count of 0.3, the rest t hat CBC was unremarkable, sodium is 135, that is the electrolytes are unremarkable: BUN is 24, creatinine is 0.83. LDH and CRP are relatively stable, at 1180 and 169 respectively, pro calcitonin level came back elevated at 0.51. No chest pain, cough is improving. Patient reports feeling much better. No nausea or vomiting. The patient is seen today 03/26/2020 in follow-up on the selective care unit. He is currently sitting up in a chair at the bedside. He is awake and alert in no acute distress. He is down to 10 L high flow nasal cannula compared to 15 yesterday. Feeling quite a bit better. Blood cultures revealing no growth. White count 5.0. Hemoglobin 16.3. Lymphocytes 0.2. D-dimer 2.14. Sodium 135. Potassium 3.7. Creatinine 0.79. LDH 1243. C-reactive protein 130. Chest x- ray continues to reveal similar findings of bilateral airspace disease. He remains on IV Solu-Medrol, Lovenox, Pepcid, vitamin C, vitamin D, zinc, melatonin. This is day #3 of Remdesivir. Objective - Vital Signs Vital signs: Vital Signs Temp 98.4 F 03/26/20 11:25 Pulse 104 H 03/26/20 11:25 Resp 18 03/26/20 11:30 BP 112/74 03/26/20 11:25 Pulse Ox 93 L 03/26/20 11:30 Intake & Output 03/25/20 03/26/20 03/26/20 18:59 06:59 18:59 Intake Total 480 120 520 Output Total 200 735 150 Balance 280 -615 370 Weight 70 kg Intake: Oral 480 120 520 Output: Urine 200 735 150 Other: # Voids 1 - Exam GENERAL EXAM: Alert, pleasant, 69-year-old male patient, on 10 L of oxygen and the pulse ox of 95%, comfortable in no apparent distress. HEAD: Normocephalic/atraumatic. EYES: Normal reaction of pupils, equal size. Conjunctiva pink, sclera white. NOSE: Clear with pink turbinates. THROAT: No erythema or exudates. NECK: No masses, no JVD, no thyroid enlargement, no adenopathy. CHEST: No chest wall deformity. Symmetrical expansion. LUNGS: Equal air entry with bilateral scattered rhonchi. CVS: Regular rate and rhythm, normal S1 and S2, no gallops, no murmurs, no rubs ABDOMEN: Soft, nontender. No hepatosplenomegaly, normal bowel sounds, no guarding or rigidity. EXTREMITIES: No clubbing, no edema, no cyanosis, 2+ pulses and upper and lower extremities. MUSCULOSKELETAL: Muscle strength and tone normal. SPINE: No scoliosis or deformity SKIN: No rashes CENTRAL NERVOUS SYSTEM: Alert and oriented -3. No focal deficits, tone is normal in all 4 extremities. PSYCHIATRIC: Alert and oriented -3. Appropriate affect. Intact judgment and insight. - Labs CBC & Chem 7: 03/26/20 07:54 03/26/20 07:54 Labs: Abnormal Lab Results - Last 24 Hours (Table) 03/25/20 03/25/20 03/25/20 Range/Units 16:35 20:05 23:53 Lymphocytes # (1.0-4.8) k/uL Fibrinogen (200-500) mg/dL D-Dimer (<0.60) mg/L FEU Sodium 134 L (137-145) mmol/L Chloride (98-107) mmol/L BUN 29 H (9-20) mg/dL Glucose 146 H (74-99) mg/dL POC Glucose (mg/dL) 112 H 135 H (75-99) mg/dL Magnesium 2.6 H (1.6-2.3) mg/dL Total Bilirubin (0.2-1.3) mg/dL Lactate Dehydrogenase (313-618) U/L C-Reactive Protein (<10.0) mg/L Albumin (3.5-5.0) g/dL 03/26/20 03/26/20 03/26/20 Range/Units 06:02 07:54 07:54 Lymphocytes # 0.2 L (1.0-4.8) k/uL Fibrinogen (200-500) mg/dL D-Dimer (<0.60) mg/L FEU Sodium 135 L (137-145) mmol/L Chloride 97 L (98-107) mmol/L BUN 28 H (9-20) mg/dL Glucose 149 H (74-99) mg/dL POC Glucose (mg/dL) 138 H (75-99) mg/dL Magnesium (1.6-2.3) mg/dL Total Bilirubin 1.5 H (0.2-1.3) mg/dL Lactate Dehydrogenase 1243 H (313-618) U/L C-Reactive Protein 130.4 H (<10.0) mg/L Albumin 3.2 L (3.5-5.0) g/dL 03/26/20 03/26/20 Range/Units 07:54 11:15 Lymphocytes # (1.0-4.8) k/uL Fibrinogen 661 H (200-500) mg/dL D-Dimer 2.14 H (<0.60) mg/L FEU Sodium (137-145) mmol/L Chloride (98-107) mmol/L BUN (9-20) mg/dL Glucose (74-99) mg/dL POC Glucose (mg/dL) 138 H (75-99) mg/dL Magnesium (1.6-2.3) mg/dL Total Bilirubin (0.2-1.3) mg/dL Lactate Dehydrogenase (313-618) U/L C-Reactive Protein (<10.0) mg/L Albumin (3.5-5.0) g/dL Microbiology - Last 24 Hours (Table) 03/24/20 08:33 Blood Culture - Preliminary Blood No Growth after 48 hours Assessment and Plan Assessment: #1. Acute and severe hypoxic respiratory failure related to acute Covid 19 related pneumonia, started on Remdesivir, with onset of symptoms of weeks ago #2. Shortness of breath, severe hypoxemia related to the above #3. Increased inflammatory markers related acute coronavirus infection #4. Spouse positive for Covid 19 infection #5. Never smoker #6. Increased blood calcitonin, rule out possibility of bacterial infection, we will add empiric antibiotics Plan: The patient was seen and evaluated by Dr. Angel Chest x-ray and labs reviewed Continue the current treatment plan Continue Remdesivir We will continue to follow I, the cosigning physician, performed a history & physical examination of the patient. Lungs sounds with bilateral scattered rhonchi. Maintaining good O2 saturations in the 90s on 10 L high flow nasal cannula. I discussed the assessment and plan of care with my nurse practitioner, Bethany Bailey. I attest to the above note as dictated by her.
[2020-03-26 17:01] LABS: Glucose,Whole Blood 133 mg/dL (75-99)
[2020-03-26 19:43] LABS: Ferritin 1507.4 ng/mL (22.0-322.0)
[2020-03-26] MEDS: MELATONIN 5 MG TABLET PO SCH (20:10)
--- NOTE | 2020-03-26 20:35 | P.PN ---
Progress Note - Text Progress Note Date: 03/26/20 Chief Complaint: Short of breath History of presenting complaint: This is a pleasant 69-year-old patient of Dr. Chester. Patient tested positive for COVID 6 days ago. Patient has been progressively getting more and more short of breath. He was tested positive and his family doctor. His current decreased appetite. Diet. Loss of taste. No diarrhea. Some mild GI. EMS reported patient to be hypoxic and a 70% on room air. Prior to this patient is feeling fine. Patient did not report any fever. He was 91% on 6 L in the ER. Admitted with bilateral pneumonia from COVID 19, acute hypoxic respiratory failure, lactic acidosis, hyponatremia. Started on steroids Lovenox and Pepcid Remdesivir oxygen supplementation. Today-sitting up in a chair. On high flow nasal cannula. Slight taste and smell started to come back. Up to the bathroom. A bit less short of breath. Review of systems: Was done for constitutional, cardiovascular, GI, pulmonary. relevant finding as above Active Medications Acetaminophen (Acetaminophen Tab 325 Mg Tab) 650 mg PO Q4HR PRN PRN Reason: Fever>101 Al Hydroxide/Mg Hydroxide (Mag Hydrox/Al Hydrox/Simeth 30 Ml Cup) 15 ml PO Q6HR PRN PRN Reason: Indigestion Amoxicillin/Clavulanate Potassium (Amoxic-Pot Clav 875-125mg 1 Each Tab) 1 each PO Q12HR [facility] Last Admin: 03/26/20 20:10 Dose: 1 each Documented by: Calcium Carbonate/Glycine (Calcium Carbonate 500 Mg Chewable) 1,000 mg PO Q4HR PRN PRN Reason: Dyspepsia Cholecalciferol (Cholecalciferol 400 Unit Tab) 400 unit PO DAILY [facility] Last Admin: 03/26/20 09:25 Dose: 400 unit Documented by: Enoxaparin Sodium (Enoxaparin 60 Mg/0.6 Ml Syringe) 60 mg SQ Q12HR [facility] Last Admin: 03/26/20 20:11 Dose: 60 mg Documented by: Famotidine (Famotidine 20 Mg Tab) 20 mg PO BID [facility] Last Admin: 03/26/20 20:10 Dose: 20 mg Documented by: Remdesivir 100 mg/ Sodium (Chloride) 250 mls @ 250 mls/hr IVPB Q24H [facility] Stop: 03/28/20 11:59 Last Admin: 11/18/20 12:10 Dose: 250 mls/hr Documented by: Sodium Chloride (Saline 0.9%) 1,000 mls @ 20 mls/hr IV .Q24H [facility] Last Admin: 03/26/20 12:10 Dose: 20 mls/hr Documented by: Insulin Aspart (Insulin Aspart (Novolog) 100 Unit/Ml Vial) 0 unit SQ AC-TID [facility]; Protocol Last Admin: 03/26/20 17:23 Dose: 1 unit Documented by: Lactulose (Lactulose 20 Gm/30 Ml Cup) 20 gm PO DAILY PRN PRN Reason: Constipation Magnesium Hydroxide (Magnesium Hydroxide 2,400 Mg/10 Ml Cup) 2,400 mg PO DAILY PRN PRN Reason: Constipation Melatonin (Melatonin 5 Mg Tablet) 5 mg PO HS [facility] Last Admin: 03/26/20 20:10 Dose: 5 mg Documented by: Methylprednisolone Sodium Succinate (Methylprednisolone Sod Succi 40 Mg/Ml 1 Ml Vial) 40 mg IV Q8HR [facility] Last Admin: 03/26/20 17:22 Dose: 40 mg Documented by: Naloxone HCl (Naloxone 0.4 Mg/Ml 1 Ml Vial) 0.2 mg IV Q2M PRN PRN Reason: Opioid Reversal Ondansetron HCl (Ondansetron 4 Mg/2 Ml Vial) 4 mg IVP Q8HR PRN PRN Reason: Nausea And Vomiting Zinc Sulfate (Zinc Sulfate 220 Mg Cap) 220 mg PO DAILY [facility] Last Admin: 03/26/20 09:25 Dose: 220 mg Documented by: Physical examination: VITAL SIGNS: 98.4, 104, 16, 112/74, 95% on 10 L GENERAL: Sitting up on it chair, a bit less short of breath PSYCH: [Alert and oriented x3; mood and affect anxious]l. Rest of exam as per nursing and pulmonary INVESTIGATIONS, reviewed in the clinical context: White count 5 hemoglobin 16.3 d-dimer 2.14 potassium 3.7 CRP 1:30 pro-calcitonin 0.4 Previous testing White count 4.6 hemoglobin 14.6 platelets 209 lymphocyte 0.4 d-dimer 1.99 sodium 132 potassium 3.6 bun 25 creatinine 1.03 Lactic acid 2.3 LDH 1270 CRP 166.3 albumin 3.10 calcitonin 0.51 EKG tracing personally reviewed by me-normal sinus rhythm, rate of 101 CT angina chest-negative for PE. Diffuse airspace disease bilaterally. Chest x-ray film personally reviewed by me-bilateral infiltrates Assessment: -Acute bilateral pneumonia from COVID 19 diagnosed a week prior to presentation.-Slow to respond -Acute hypoxic respiratory failure from above-on 10 L of oxygen-slow to respond -Lactic acidosis from above -Mild hyponatremia from decreased fluid intake -Clinical dehydration -Hypoalbuminemia-acute phase reactant Plan: Continue with Lovenox, Solu-Medrol, zinc, Pepcid, vitamin D3. Remdesivir. Oxygen supplemented. Discussed with patient. He was concerned about his is also under by care was done much better getting discharged today. Empiric antibiotics added by pulmonary
[2020-03-26 20:54] LABS: Glucose,Whole Blood 155 mg/dL (75-99)
[2020-03-27] MEDS: methylPREDNISolone SOD SUCCI 40 MG/ML 1 ML VIAL IV SCH ×4 (00:27→23:57)
[2020-03-27 06:35] LABS: Glucose,Whole Blood 135 mg/dL (75-99)
[2020-03-27] MEDS: INSULIN ASPART (NovoLOG) 100 UNIT/ML VIAL SQ SCH ×3 (07:05→17:15)
[2020-03-27] MEDS: AMOXIC-POT CLAV 875-125MG 1 EACH TAB PO SCH ×2 (09:08→20:17)
[2020-03-27] MEDS: FAMOTIDINE 20 MG TAB PO SCH ×2 (09:08→20:17)
[2020-03-27] MEDS: CHOLECALCIFEROL 400 UNIT TAB PO SCH (09:08)
[2020-03-27] MEDS: ZINC SULFATE 220 MG CAP PO SCH (09:08)
[2020-03-27 09:16] LABS: Basophils % (A) 0 %; Eosinophils % (A) 0 %; HCT 45.9 % (39.0-53.0); Lymphocytes # (A) 0.3 k/uL (1.0-4.8); Lymphocytes % (A) 5 %; MCH 28.7 pg (25.0-35.0); MCHC 32.6 g/dL (31.0-37.0); MCV 87.9 fL (80.0-100.0); Monocytes # (A) 0.2 k/uL (0-1.0); Monocytes % (A) 3 %; Neutrophils # (A) 4.9 k/uL (1.3-7.7); Neutrophils % (A) 91 %; Platelet Count 350 k/uL (150-450); RBC 5.22 m/uL (4.30-5.90); RDW 14.4 % (11.5-15.5); WBC 5.4 k/uL (3.8-10.6)
[2020-03-27 09:31] LABS: ALT 30 U/L (4-49); AST 47 U/L (17-59); African American GFR (CKD) >90 (>60 ml/min/1.73 sqM); Albumin 2.9 g/dL (3.5-5.0); Alkaline Phosphatase 74 U/L (38-126); Anion Gap 5 mmol/L; Blood Urea Nitrogen 24 mg/dL (9-20); Calcium 8.6 mg/dL (8.4-10.2); Carbon Dioxide 31 mmol/L (22-30); Chloride 96 mmol/L (98-107); Glucose 139 mg/dL (74-99); LDH 963 U/L (313-618); Non-African American GFR(CKD) 89 (>60 ml/min/1.73 sqM); Potassium 4.2 mmol/L (3.5-5.1); Sodium 132 mmol/L (137-145); Total Bilirubin 1.4 mg/dL (0.2-1.3); Total Protein 6.1 g/dL (6.3-8.2)
[2020-03-27 10:20] LABS: C Reactive Protein 57.2 mg/L (<10.0)
[2020-03-27] MEDS: ENOXAPARIN 60 MG/0.6 ML SYRINGE SQ SCH ×2 (11:14→20:17)
[2020-03-27] MEDS: REMDESIVIR (EUA) 100 MG in SODIUM CHLORIDE 0.9% 250 ML IVPB SCH (11:14)
[2020-03-27] MEDS: SODIUM CHLORIDE 0.9% 1,000 ML IV SCH (11:15)
[2020-03-27 12:12] LABS: Glucose,Whole Blood 110 mg/dL (75-99)
--- NOTE | 2020-03-27 15:58 | P.PN ---
Subjective Progress Note Date: 03/27/20 Principal diagnosis: CoVID 19 pneumonia 69-year-old white male patient of Dr. Chester, who presented to the emergency department on 03/24/2020 with complaints of worsening shortness of breath, and patient tested positive for coronavirus 6 days ago. His been short of breath for approximately one week, patient's was also having symptoms, and they were seen by their primary care provider a week ago and both tested positive. Patient was experiencing progressive shortness of breath. Denies any fevers, his called EMS today, he was brought into the emergency department. Denies any chest pain, denies any significant cough, his pulse ox was only 70% on room air in the ambulance. She was placed on supplemental oxygen, currently on 6 L per high flow nasal cannula his pulse ox of 92%. Chest x-ray showed diffuse bilateral airspace disease, lab work was reviewed showing lymphopenia with lymphocyte count of 0.4, d-dimer of 1.99, sodium 132, potassium is 3.6, chloride is 95, CO2 31, B1 is 25 creatinine is 1.03, plasma lactic acid is 2.3, AST was 78, ALT and alkaline phosphatase were within normal limits, ferritin and fibrinogen were elevated, at 912, and 641 respectively, LDH was 1270, and CRP was 166, pro calcitonin level was 0.51. CTA chest showed no evidence of pulmonary embolism, it did show diffuse airspace disease bilaterally. Patient has had low-grade fevers while in the emergency department, his oxygenation needs increased from 6 L to 15 L, his pulse ox is 91%, he was started on IV Decadron, we started the patient on Remdesivir today, he is on Pepcid, he is on Lovenox 40 mg every 24 hours, he is on IV hydration with point in the setting at a rate of 75 ML per hour. On 03/25/2020 patient seen in follow-up on selective care unit. Remains on high flow oxygen, 15 L, and his pulse ox is between 91-93%, his been afebrile, his last episode of fever was last night at 2019, with a temp of 100.2F. Today is day 2 of Remdesivir, he is on IV steroids Solu-Medrol, 40 mg every 8 hours, he is on IV hydration, zinc, Pepcid, he is on prophylactic dose of Lovenox. Labs have been reviewed, still lymphopenia, with lymphocyte count of 0.3, the rest t hat CBC was unremarkable, sodium is 135, that is the electrolytes are unremarkable: BUN is 24, creatinine is 0.83. LDH and CRP are relatively stable, at 1180 and 169 respectively, pro calcitonin level came back elevated at 0.51. No chest pain, cough is improving. Patient reports feeling much better. No nausea or vomiting. The patient is seen today 03/26/2020 in follow-up on the selective care unit. He is currently sitting up in a chair at the bedside. He is awake and alert in no acute distress. He is down to 10 L high flow nasal cannula compared to 15 yesterday. Feeling quite a bit better. Blood cultures revealing no growth. White count 5.0. Hemoglobin 16.3. Lymphocytes 0.2. D-dimer 2.14. Sodium 135. Potassium 3.7. Creatinine 0.79. LDH 1243. C-reactive protein 130. Chest x- ray continues to reveal similar findings of bilateral airspace disease. He remains on IV Solu-Medrol, Lovenox, Pepcid, vitamin C, vitamin D, zinc, melatonin. This is day #3 of Remdesivir. Reason seen today 03/27/2020 in follow-up on the selective care unit. He is currently sitting up in chair at the bedside awake and alert in no acute distress. He states he is breathing quite a bit better today compared to yesterday. He is maintaining O2 saturations in the low 90s on 2 L/m per nasal c annula. He was 88% on room air today. Afebrile. White count 5.4. Hemoglobin 15.0. Sodium 1:30. Potassium 4.2. Creatinine 0.82. LDH 963. C-reactive protein 57. This is day #4 of Remdesivir. He remains on IV Solu-Medrol, Lovenox, Pepcid, vitamin C, vitamin D, zinc, melatonin. Objective - Vital Signs Vital signs: Vital Signs Temp 98.8 F 03/27/20 15:38 Pulse 76 03/27/20 15:38 Resp 18 03/27/20 15:40 BP 116/69 03/27/20 15:38 Pulse Ox 92 L 03/27/20 15:38 Intake & Output 03/26/20 03/27/20 03/27/20 18:59 06:59 18:59 Intake Total 760 920 Output Total 150 Balance 610 920 Weight 67 kg Intake: IV 20 Invasive Line 1 20 Oral 760 900 Output: Urine 150 Other: # Voids 1 1 - Exam GENERAL EXAM: Alert, pleasant, 69-year-old male patient, on 2 L of oxygen and the pulse ox of 92%, comfortable in no apparent distress. HEAD: Normocephalic/atraumatic. EYES: Normal reaction of pupils, equal size. Conjunctiva pink, sclera white. NOSE: Clear with pink turbinates. THROAT: No erythema or exudates. NECK: No masses, no JVD, no thyroid enlargement, no adenopathy. CHEST: No chest wall deformity. Symmetrical expansion. LUNGS: Equal air entry with bilateral scattered rhonchi. CVS: Regular rate and rhythm, normal S1 and S2, no gallops, no murmurs, no rubs ABDOMEN: Soft, nontender. No hepatosplenomegaly, normal bowel sounds, no guarding or rigidity. EXTREMITIES: No clubbing, no edema, no cyanosis, 2+ pulses and upper and lower extremities. MUSCULOSKELETAL: Muscle strength and tone normal. SPINE: No scoliosis or deformity SKIN: No rashes CENTRAL NERVOUS SYSTEM: Alert and oriented -3. No focal deficits, tone is normal in all 4 extremities. PSYCHIATRIC: Alert and oriented -3. Appropriate affect. Intact judgment and insight. - Labs CBC & Chem 7: 03/27/20 08:01 03/27/20 08:01 Labs: Abnormal Lab Results - Last 24 Hours (Table) 03/26/20 03/26/20 03/26/20 Range/Units 07:54 07:54 16:37 Lymphocytes # (1.0-4.8) k/uL Sodium (137-145) mmol/L Chloride (98-107) mmol/L Carbon Dioxide (22-30) mmol/L BUN (9-20) mg/dL Glucose (74-99) mg/dL POC Glucose (mg/dL) 133 H (75-99) mg/dL Ferritin 1507.4 H (22.0-322.0) ng/mL Total Bilirubin (0.2-1.3) mg/dL Lactate Dehydrogenase (313-618) U/L C-Reactive Protein (<10.0) mg/L Total Protein (6.3-8.2) g/dL Albumin (3.5-5.0) g/dL Procalcitonin 0.41 H (0.02-0.09) ng/mL 03/26/20 03/27/20 03/27/20 Range/Units 20:53 06:33 08:01 Lymphocytes # 0.3 L (1.0-4.8) k/uL Sodium (137-145) mmol/L Chloride (98-107) mmol/L Carbon Dioxide (22-30) mmol/L BUN (9-20) mg/dL Glucose (74-99) mg/dL POC Glucose (mg/dL) 155 H 135 H (75-99) mg/dL Ferritin (22.0-322.0) ng/mL Total Bilirubin (0.2-1.3) mg/dL Lactate Dehydrogenase (313-618) U/L C-Reactive Protein (<10.0) mg/L Total Protein (6.3-8.2) g/dL Albumin (3.5-5.0) g/dL Procalcitonin (0.02-0.09) ng/mL 03/27/20 03/27/20 Range/Units 08:01 11:58 Lymphocytes # (1.0-4.8) k/uL Sodium 132 L (137-145) mmol/L Chloride 96 L (98-107) mmol/L Carbon Dioxide 31 H (22-30) mmol/L BUN 24 H (9-20) mg/dL Glucose 139 H (74-99) mg/dL POC Glucose (mg/dL) 110 H (75-99) mg/dL Ferritin (22.0-322.0) ng/mL Total Bilirubin 1.4 H (0.2-1.3) mg/dL Lactate Dehydrogenase 963 H (313-618) U/L C-Reactive Protein 57.2 H (<10.0) mg/L Total Protein 6.1 L (6.3-8.2) g/dL Albumin 2.9 L (3.5-5.0) g/dL Procalcitonin (0.02-0.09) ng/mL Microbiology - Last 24 Hours (Table) 03/24/20 08:33 Blood Culture - Preliminary Blood No Growth after 72 hours Assessment and Plan Assessment: #1. Acute and severe hypoxic respiratory failure related to acute Covid 19 related pneumonia, started on Remdesivir, with onset of symptoms of weeks ago #2. Shortness of breath, severe hypoxemia related to the above #3. Increased inflammatory markers related acute coronavirus infection #4. Spouse positive for Covid 19 infection #5. Never smoker #6. Increased blood calcitonin, rule out possibility of bacterial infection, we will add empiric antibiotics Plan: The patient was seen and evaluated by Dr. Angel He is improving and down to 2 L/m per nasal cannula Continue the current treatment plan We will continue to follow I, the cosigning physician, performed a history & physical examination of the patient. Lungs sounds with bilateral scattered rhonchi. Maintaining good O2 saturations in the 90s on 2 L high flow nasal cannula. I discussed the assessment and plan of care with my nurse practitioner, Bethany Bailey. I attest to the above note as dictated by her.
[2020-03-27 16:11] LABS: Ferritin 953.7 ng/mL (22.0-322.0)
[2020-03-27 17:27] LABS: Glucose,Whole Blood 122 mg/dL (75-99)
--- NOTE | 2020-03-27 20:16 | P.PN ---
Progress Note - Text Progress Note Date: 03/27/20 Chief Complaint: Short of breath History of presenting complaint: This is a pleasant 69-year-old patient of Dr. Chester. Patient tested positive for COVID 6 days ago. Patient has been progressively getting more and more short of breath. He was tested positive and his family doctor. His current decreased appetite. Diet. Loss of taste. No diarrhea. Some mild GI. EMS reported patient to be hypoxic and a 70% on room air. Prior to this patient is feeling fine. Patient did not report any fever. He was 91% on 6 L in the ER. Admitted with bilateral pneumonia from COVID 19, acute hypoxic respiratory failure, lactic acidosis, hyponatremia. Started on steroids Lovenox and Pepcid Remdesivir oxygen supplementation. Today-feeling better. Oral intake improving. Up to the bathroom. Oxygen level down to 2 L nasal cannula. Review of systems: Was done for constitutional, cardiovascular, GI, pulmonary. relevant finding as above Active Medications Acetaminophen (Acetaminophen Tab 325 Mg Tab) 650 mg PO Q4HR PRN PRN Reason: Fever>101 Al Hydroxide/Mg Hydroxide (Mag Hydrox/Al Hydrox/Simeth 30 Ml Cup) 15 ml PO Q6HR PRN PRN Reason: Indigestion Amoxicillin/Clavulanate Potassium (Amoxic-Pot Clav 875-125mg 1 Each Tab) 1 each PO Q12HR [facility] Last Admin: 03/27/20 09:08 Dose: 1 each Documented by: Calcium Carbonate/Glycine (Calcium Carbonate 500 Mg Chewable) 1,000 mg PO Q4HR PRN PRN Reason: Dyspepsia Cholecalciferol (Cholecalciferol 400 Unit Tab) 400 unit PO DAILY [facility] Last Admin: 03/27/20 09:08 Dose: 400 unit Documented by: Enoxaparin Sodium (Enoxaparin 60 Mg/0.6 Ml Syringe) 60 mg SQ Q12HR [facility] Last Admin: 03/27/20 11:14 Dose: 60 mg Documented by: Famotidine (Famotidine 20 Mg Tab) 20 mg PO BID [facility] Last Admin: 03/27/20 09:08 Dose: 20 mg Documented by: Remdesivir 100 mg/ Sodium (Chloride) 250 mls @ 250 mls/hr IVPB Q24H [facility] Stop: 03/28/20 11:59 Last Admin: 11/19/20 11:14 Dose: 250 mls/hr Documented by: Insulin Aspart (Insulin Aspart (Novolog) 100 Unit/Ml Vial) 0 unit SQ AC-TID [facility]; Protocol Last Admin: 03/27/20 17:15 Dose: Not Given Documented by: Lactulose (Lactulose 20 Gm/30 Ml Cup) 20 gm PO DAILY PRN PRN Reason: Constipation Magnesium Hydroxide (Magnesium Hydroxide 2,400 Mg/10 Ml Cup) 2,400 mg PO DAILY PRN PRN Reason: Constipation Melatonin (Melatonin 5 Mg Tablet) 5 mg PO HS [facility] Last Admin: 03/26/20 20:10 Dose: 5 mg Documented by: Methylprednisolone Sodium Succinate (Methylprednisolone Sod Succi 40 Mg/Ml 1 Ml Vial) 40 mg IV Q8HR [facility] Last Admin: 03/27/20 15:15 Dose: 40 mg Documented by: Naloxone HCl (Naloxone 0.4 Mg/Ml 1 Ml Vial) 0.2 mg IV Q2M PRN PRN Reason: Opioid Reversal Ondansetron HCl (Ondansetron 4 Mg/2 Ml Vial) 4 mg IVP Q8HR PRN PRN Reason: Nausea And Vomiting Zinc Sulfate (Zinc Sulfate 220 Mg Cap) 220 mg PO DAILY [facility] Last Admin: 03/27/20 09:08 Dose: 220 mg Documented by: Physical examination: VITAL SIGNS: 97.2, 94, 18, 1 21 x 77, 88% room air, 93% on 2 L GENERAL: Sitting up on it chair, breathing better PSYCH: AO 3, mood and affect normal Rest of exam as per nursing and pulmonary INVESTIGATIONS, reviewed in the clinical context: Potassium 4.2 creatinine 0.82 CRP 57 Previous testing White count 4.6 hemoglobin 14.6 platelets 209 lymphocyte 0.4 d-dimer 1.99 sodium 132 potassium 3.6 bun 25 creatinine 1.03 Lactic acid 2.3 LDH 1270 CRP 166.3 albumin 3.10 calcitonin 0.51 EKG tracing personally reviewed by me-normal sinus rhythm, rate of 101 CT angina chest-negative for PE. Diffuse airspace disease bilaterally. Chest x-ray film personally reviewed by me-bilateral infiltrates Assessment: -Acute bilateral pneumonia from COVID 19 diagnosed a week prior to presentation.-Fair clinical response -Acute hypoxic respiratory failure from above-on 2 L of fair response -Lactic acidosis from above -Mild hyponatremia from decreased fluid intake -Clinical dehydration -Hypoalbuminemia-acute phase reactant Plan: Continue with Lovenox, Solu-Medrol, zinc, Pepcid, vitamin D3. Remdesivir-day for. Oxygen 2 L. Discussed with patient. Hoping patient can be discharged tomorrow. Patient may need some oxygen for home.
[2020-03-27] MEDS: MELATONIN 5 MG TABLET PO SCH (20:17)
[2020-03-27 20:22] LABS: Glucose,Whole Blood 146 mg/dL (75-99)
[2020-03-28 06:25] LABS: Glucose,Whole Blood 116 mg/dL (75-99)
[2020-03-28] MEDS: INSULIN ASPART (NovoLOG) 100 UNIT/ML VIAL SQ SCH ×3 (06:36→17:56)
[2020-03-28] MEDS: FAMOTIDINE 20 MG TAB PO SCH ×2 (09:30→20:36)
[2020-03-28] MEDS: CHOLECALCIFEROL 400 UNIT TAB PO SCH (09:30)
[2020-03-28] MEDS: ZINC SULFATE 220 MG CAP PO SCH (09:30)
[2020-03-28] MEDS: methylPREDNISolone SOD SUCCI 40 MG/ML 1 ML VIAL IV SCH ×2 (09:30→15:31)
[2020-03-28] MEDS: ENOXAPARIN 60 MG/0.6 ML SYRINGE SQ SCH ×2 (09:30→20:36)
[2020-03-28] MEDS: AMOXIC-POT CLAV 875-125MG 1 EACH TAB PO SCH ×2 (09:30→20:36)
[2020-03-28 10:43] LABS: D-Dimer 1.2 mg/L FEU (<0.60)
[2020-03-28] MEDS: REMDESIVIR (EUA) 100 MG in SODIUM CHLORIDE 0.9% 250 ML IVPB SCH (11:31)
[2020-03-28 12:25] LABS: Glucose,Whole Blood 101 mg/dL (75-99)
--- NOTE | 2020-03-28 15:29 | P.PN ---
Subjective Progress Note Date: 03/28/20 Principal diagnosis: CoVID 19 pneumonia 69-year-old white male patient of Dr. Chester, who presented to the emergency department on 03/24/2020 with complaints of worsening shortness of breath, and patient tested positive for coronavirus 6 days ago. His been short of breath for approximately one week, patient's was also having symptoms, and they were seen by their primary care provider a week ago and both tested positive. Patient was experiencing progressive shortness of breath. Denies any fevers, his called EMS today, he was brought into the emergency department. Denies any chest pain, denies any significant cough, his pulse ox was only 70% on room air in the ambulance. She was placed on supplemental oxygen, currently on 6 L per high flow nasal cannula his pulse ox of 92%. Chest x-ray showed diffuse bilateral airspace disease, lab work was reviewed showing lymphopenia with lymphocyte count of 0.4, d-dimer of 1.99, sodium 132, potassium is 3.6, chloride is 95, CO2 31, B1 is 25 creatinine is 1.03, plasma lactic acid is 2.3, AST was 78, ALT and alkaline phosphatase were within normal limits, ferritin and fibrinogen were elevated, at 912, and 641 respectively, LDH was 1270, and CRP was 166, pro calcitonin level was 0.51. CTA chest showed no evidence of pulmonary embolism, it did show diffuse airspace disease bilaterally. Patient has had low-grade fevers while in the emergency department, his oxygenation needs increased from 6 L to 15 L, his pulse ox is 91%, he was started on IV Decadron, we started the patient on Remdesivir today, he is on Pepcid, he is on Lovenox 40 mg every 24 hours, he is on IV hydration with point in the setting at a rate of 75 ML per hour. On 03/25/2020 patient seen in follow-up on selective care unit. Remains on high flow oxygen, 15 L, and his pulse ox is between 91-93%, his been afebrile, his last episode of fever was last night at 2019, with a temp of 100.2F. Today is day 2 of Remdesivir, he is on IV steroids Solu-Medrol, 40 mg every 8 hours, he is on IV hydration, zinc, Pepcid, he is on prophylactic dose of Lovenox. Labs have been reviewed, still lymphopenia, with lymphocyte count of 0.3, the rest t hat CBC was unremarkable, sodium is 135, that is the electrolytes are unremarkable: BUN is 24, creatinine is 0.83. LDH and CRP are relatively stable, at 1180 and 169 respectively, pro calcitonin level came back elevated at 0.51. No chest pain, cough is improving. Patient reports feeling much better. No nausea or vomiting. The patient is seen today 03/26/2020 in follow-up on the selective care unit. He is currently sitting up in a chair at the bedside. He is awake and alert in no acute distress. He is down to 10 L high flow nasal cannula compared to 15 yesterday. Feeling quite a bit better. Blood cultures revealing no growth. White count 5.0. Hemoglobin 16.3. Lymphocytes 0.2. D-dimer 2.14. Sodium 135. Potassium 3.7. Creatinine 0.79. LDH 1243. C-reactive protein 130. Chest x- ray continues to reveal similar findings of bilateral airspace disease. He remains on IV Solu-Medrol, Lovenox, Pepcid, vitamin C, vitamin D, zinc, melatonin. This is day #3 of Remdesivir. Reason seen today 03/27/2020 in follow-up on the selective care unit. He is currently sitting up in chair at the bedside awake and alert in no acute distress. He states he is breathing quite a bit better today compared to yesterday. He is maintaining O2 saturations in the low 90s on 2 L/m per nasal c annula. He was 88% on room air today. Afebrile. White count 5.4. Hemoglobin 15.0. Sodium 1:30. Potassium 4.2. Creatinine 0.82. LDH 963. C-reactive protein 57. This is day #4 of Remdesivir. He remains on IV Solu-Medrol, Lovenox, Pepcid, vitamin C, vitamin D, zinc, melatonin. The patient is seen today 03/28/2020 in follow-up on the selective care unit. Currently sitting up in a chair at the bedside. Awake and alert in no acute distress. Denies any worsening shortness of breath. He has a loose nonproductive cough. No fever chills or night sweats. Still requiring 2 L/m per nasal cannula to maintain O2 saturation low 90s. He is afebrile. Blood culture reveals no growth. Fibrinogen 506. D-dimer 1.20. C-reactive protein 34. He received his last dose of Remdesivir this morning. He remains on IV Solu-Medrol, Lovenox, Pepcid, vitamin C, vitamin D, zinc, melatonin. Objective - Vital Signs Vital signs: Vital Signs Temp 97.2 F L 03/28/20 12:00 Pulse 102 H 03/28/20 12:00 Resp 16 03/28/20 12:00 BP 108/56 03/28/20 12:00 Pulse Ox 90 L 03/28/20 12:00 Intake & Output 03/27/20 03/28/20 03/28/20 18:59 06:59 18:59 Intake Total 1280 810 Output Total 600 Balance 1280 210 Weight 71.5 kg Intake: IV 20 270 Invasive Line 1 20 Invasive Line 2 20 Remdesivir (Eua) 100 mg 250 In Sodium Chloride 0.9% 250 ml @ 250 mls/hr IVPB Q24H [facility]END[facility] TO [facility] Rx#:[id number] Oral 1260 540 Output: Urine 600 Other: # Voids 1 - Exam GENERAL EXAM: Alert, pleasant, 69-year-old male patient, on 2 L of oxygen and the pulse ox of 92%, comfortable in no apparent distress. HEAD: Normocephalic/atraumatic. EYES: Normal reaction of pupils, equal size. Conjunctiva pink, sclera white. NOSE: Clear with pink turbinates. THROAT: No erythema or exudates. NECK: No masses, no JVD, no thyroid enlargement, no adenopathy. CHEST: No chest wall deformity. Symmetrical expansion. LUNGS: Equal air entry with bilateral scattered rhonchi. CVS: Regular rate and rhythm, normal S1 and S2, no gallops, no murmurs, no rubs ABDOMEN: Soft, nontender. No hepatosplenomegaly, normal bowel sounds, no guarding or rigidity. EXTREMITIES: No clubbing, no edema, no cyanosis, 2+ pulses and upper and lower extremities. MUSCULOSKELETAL: Muscle strength and tone normal. SPINE: No scoliosis or deformity SKIN: No rashes CENTRAL NERVOUS SYSTEM: Alert and oriented -3. No focal deficits, tone is normal in all 4 extremities. PSYCHIATRIC: Alert and oriented -3. Appropriate affect. Intact judgment and insight. - Labs CBC & Chem 7: 03/27/20 08:01 03/27/20 08:01 Labs: Abnormal Lab Results - Last 24 Hours (Table) 03/27/20 03/27/20 03/27/20 Range/Units 08:01 16:59 20:16 Fibrinogen (200-500) mg/dL D-Dimer (<0.60) mg/L FEU POC Glucose (mg/dL) 122 H 146 H (75-99) mg/dL Ferritin 953.7 H (22.0-322.0) ng/mL Creatine Kinase (55-170) U/L C-Reactive Protein (<10.0) mg/L 03/28/20 03/28/20 03/28/20 Range/Units 06:21 09:31 09:31 Fibrinogen 506 H (200-500) mg/dL D-Dimer 1.20 H (<0.60) mg/L FEU POC Glucose (mg/dL) 116 H (75-99) mg/dL Ferritin (22.0-322.0) ng/mL Creatine Kinase 44 L (55-170) U/L C-Reactive Protein (<10.0) mg/L 03/28/20 03/28/20 Range/Units 09:31 12:11 Fibrinogen (200-500) mg/dL D-Dimer (<0.60) mg/L FEU POC Glucose (mg/dL) 101 H (75-99) mg/dL Ferritin (22.0-322.0) ng/mL Creatine Kinase (55-170) U/L C-Reactive Protein 34.1 H (<10.0) mg/L Microbiology - Last 24 Hours (Table) 03/24/20 08:33 Blood Culture - Preliminary Blood No Growth after 96 hours Assessment and Plan Assessment: #1. Acute and severe hypoxic respiratory failure related to acute Covid 19 related pneumonia, started on Remdesivir, with onset of symptoms of weeks ago #2. Shortness of breath, severe hypoxemia related to the above #3. Increased inflammatory markers related acute coronavirus infection #4. Spouse positive for Covid 19 infection #5. Never smoker #6. Increased blood calcitonin, rule out possibility of bacterial infection, we will add empiric antibiotics Plan: The patient was seen and evaluated by Dr. Artinian He is improving and down to 2 L/m per nasal cannula Titrate down the FiO2 as tolerated Completed Remdesivir today Continue the current treatment plan Possibly home in the a.m. May need home oxygen We will continue to follow I, the cosigning physician, performed a history & physical examination of the patient. Lungs sounds with bilateral scattered rhonchi. Maintaining good O2 saturations in the 90s on 2 L high flow nasal cannula. I discussed the assessment and plan of care with my nurse practitioner, Bethany Bailey. I attest to the above note as dictated by her.
[2020-03-28 17:26] LABS: Glucose,Whole Blood 115 mg/dL (75-99)
--- NOTE | 2020-03-28 19:53 | P.PN ---
Progress Note - Text Progress Note Date: 03/28/20 Chief Complaint: Short of breath History of presenting complaint: This is a pleasant 69-year-old patient of Dr. Chester. Patient tested positive for COVID 6 days ago. Patient has been progressively getting more and more short of breath. He was tested positive and his family doctor. His current decreased appetite. Diet. Loss of taste. No diarrhea. Some mild GI. EMS reported patient to be hypoxic and a 70% on room air. Prior to this patient is feeling fine. Patient did not report any fever. He was 91% on 6 L in the ER. Admitted with bilateral pneumonia from COVID 19, acute hypoxic respiratory failure, lactic acidosis, hyponatremia. Started on steroids Lovenox and Pepcid Remdesivir oxygen supplementation. Today-more short of breath today. Oxygen requirement has gone up. Up in a chair. A bit more tired. Review of systems: Was done for constitutional, cardiovascular, GI, pulmonary. relevant finding as above Active Medications Acetaminophen (Acetaminophen Tab 325 Mg Tab) 650 mg PO Q4HR PRN PRN Reason: Fever>101 Al Hydroxide/Mg Hydroxide (Mag Hydrox/Al Hydrox/Simeth 30 Ml Cup) 15 ml PO Q6HR PRN PRN Reason: Indigestion Amoxicillin/Clavulanate Potassium (Amoxic-Pot Clav 875-125mg 1 Each Tab) 1 each PO Q12HR [facility] Last Admin: 03/28/20 09:30 Dose: 1 each Documented by: Calcium Carbonate/Glycine (Calcium Carbonate 500 Mg Chewable) 1,000 mg PO Q4HR PRN PRN Reason: Dyspepsia Cholecalciferol (Cholecalciferol 400 Unit Tab) 400 unit PO DAILY [facility] Last Admin: 03/28/20 09:30 Dose: 400 unit Documented by: Enoxaparin Sodium (Enoxaparin 60 Mg/0.6 Ml Syringe) 60 mg SQ Q12HR [facility] Last Admin: 03/28/20 09:30 Dose: 60 mg Documented by: Famotidine (Famotidine 20 Mg Tab) 20 mg PO BID [facility] Last Admin: 03/28/20 09:30 Dose: 20 mg Documented by: Insulin Aspart (Insulin Aspart (Novolog) 100 Unit/Ml Vial) 0 unit SQ AC-TID [facility]; Protocol Last Admin: 03/28/20 17:56 Dose: Not Given Documented by: Lactulose (Lactulose 20 Gm/30 Ml Cup) 20 gm PO DAILY PRN PRN Reason: Constipation Magnesium Hydroxide (Magnesium Hydroxide 2,400 Mg/10 Ml Cup) 2,400 mg PO DAILY PRN PRN Reason: Constipation Melatonin (Melatonin 5 Mg Tablet) 5 mg PO HS [facility] Last Admin: 03/27/20 20:17 Dose: 5 mg Documented by: Methylprednisolone Sodium Succinate (Methylprednisolone Sod Succi 40 Mg/Ml 1 Ml Vial) 40 mg IV Q8HR [facility] Last Admin: 03/28/20 15:31 Dose: 40 mg Documented by: Naloxone HCl (Naloxone 0.4 Mg/Ml 1 Ml Vial) 0.2 mg IV Q2M PRN PRN Reason: Opioid Reversal Ondansetron HCl (Ondansetron 4 Mg/2 Ml Vial) 4 mg IVP Q8HR PRN PRN Reason: Nausea And Vomiting Zinc Sulfate (Zinc Sulfate 220 Mg Cap) 220 mg PO DAILY [facility] Last Admin: 03/28/20 09:30 Dose: 220 mg Documented by: Physical examination: VITAL SIGNS: 97.2, 102, 18, 10 8 x 56, 90% on 5 L GENERAL: Sitting up on it chair, short of breath PSYCH: AO 3, mood and affect normal NEUROLOGICAL: Cranial nerves grossly intact. Moving all 4 limbs. Rest of exam as per nursing and pulmonary INVESTIGATIONS, reviewed in the clinical context: D-dimer 1.20, CRP 34.1 Previous testing White count 4.6 hemoglobin 14.6 platelets 209 lymphocyte 0.4 d-dimer 1.99 sodium 132 potassium 3.6 bun 25 creatinine 1.03 Lactic acid 2.3 LDH 1270 CRP 166.3 albumin 3.10 calcitonin 0.51 EKG tracing personally reviewed by me-normal sinus rhythm, rate of 101 CT angina chest-negative for PE. Diffuse airspace disease bilaterally. Chest x-ray film personally reviewed by me-bilateral infiltrates Assessment: -Acute bilateral pneumonia from COVID 19 diagnosed a week prior to presentation.-Fair clinical response -Acute hypoxic respiratory failure from above-on 5 L nasal status cannula-with worsening -Lactic acidosis from above -Mild hyponatremia from decreased fluid intake -Clinical dehydration -Hypoalbuminemia-acute phase reactant Plan: Continue with Lovenox, Solu-Medrol, zinc, Pepcid, vitamin D3. Dose completed. Oxygen 5 L encouraged the patient to use incentive spirometer.
[2020-03-28 20:35] LABS: Glucose,Whole Blood 136 mg/dL (75-99)
[2020-03-28] MEDS: MELATONIN 5 MG TABLET PO SCH (20:36)
[2020-03-29] MEDS: methylPREDNISolone SOD SUCCI 40 MG/ML 1 ML VIAL IV SCH ×3 (00:56→15:17)
[2020-03-29 06:22] LABS: Glucose,Whole Blood 110 mg/dL (75-99)
[2020-03-29] MEDS: INSULIN ASPART (NovoLOG) 100 UNIT/ML VIAL SQ SCH ×3 (06:31→16:51)
[2020-03-29 07:10] LABS: African American GFR (CKD) >90 (>60 ml/min/1.73 sqM); Anion Gap 1 mmol/L; Blood Urea Nitrogen 16 mg/dL (9-20); Calcium 8.5 mg/dL (8.4-10.2); Carbon Dioxide 31 mmol/L (22-30); Chloride 101 mmol/L (98-107); Glucose 120 mg/dL (74-99); Non-African American GFR(CKD) >90 (>60 ml/min/1.73 sqM); Sodium 133 mmol/L (137-145)
[2020-03-29] MEDS: FAMOTIDINE 20 MG TAB PO SCH (08:54)
[2020-03-29] MEDS: CHOLECALCIFEROL 400 UNIT TAB PO SCH (08:54)
[2020-03-29] MEDS: ENOXAPARIN 60 MG/0.6 ML SYRINGE SQ SCH (08:54)
[2020-03-29] MEDS: ZINC SULFATE 220 MG CAP PO SCH (08:54)
[2020-03-29] MEDS: AMOXIC-POT CLAV 875-125MG 1 EACH TAB PO SCH (08:54)
[2020-03-29 09:37] VITALS: RESP 16
[2020-03-29 12:45] LABS: Glucose,Whole Blood 114 mg/dL (75-99)
[2020-03-29 13:27] VITALS: BP 113/74; PULSE 98; TEMP 98.2
--- NOTE | 2020-03-29 15:16 | P.PN ---
Subjective Progress Note Date: 03/29/20 Principal diagnosis: CoVID 19 pneumonia 69-year-old white male patient of Dr. Chester, who presented to the emergency department on 03/24/2020 with complaints of worsening shortness of breath, and patient tested positive for coronavirus 6 days ago. His been short of breath for approximately one week, patient's was also having symptoms, and they were seen by their primary care provider a week ago and both tested positive. Patient was experiencing progressive shortness of breath. Denies any fevers, his called EMS today, he was brought into the emergency department. Denies any chest pain, denies any significant cough, his pulse ox was only 70% on room air in the ambulance. She was placed on supplemental oxygen, currently on 6 L per high flow nasal cannula his pulse ox of 92%. Chest x-ray showed diffuse bilateral airspace disease, lab work was reviewed showing lymphopenia with lymphocyte count of 0.4, d-dimer of 1.99, sodium 132, potassium is 3.6, chloride is 95, CO2 31, B1 is 25 creatinine is 1.03, plasma lactic acid is 2.3, AST was 78, ALT and alkaline phosphatase were within normal limits, ferritin and fibrinogen were elevated, at 912, and 641 respectively, LDH was 1270, and CRP was 166, pro calcitonin level was 0.51. CTA chest showed no evidence of pulmonary embolism, it did show diffuse airspace disease bilaterally. Patient has had low-grade fevers while in the emergency department, his oxygenation needs increased from 6 L to 15 L, his pulse ox is 91%, he was started on IV Decadron, we started the patient on Remdesivir today, he is on Pepcid, he is on Lovenox 40 mg every 24 hours, he is on IV hydration with point in the setting at a rate of 75 ML per hour. On 03/25/2020 patient seen in follow-up on selective care unit. Remains on high flow oxygen, 15 L, and his pulse ox is between 91-93%, his been afebrile, his last episode of fever was last night at 2019, with a temp of 100.2F. Today is day 2 of Remdesivir, he is on IV steroids Solu-Medrol, 40 mg every 8 hours, he is on IV hydration, zinc, Pepcid, he is on prophylactic dose of Lovenox. Labs have been reviewed, still lymphopenia, with lymphocyte count of 0.3, the rest t hat CBC was unremarkable, sodium is 135, that is the electrolytes are unremarkable: BUN is 24, creatinine is 0.83. LDH and CRP are relatively stable, at 1180 and 169 respectively, pro calcitonin level came back elevated at 0.51. No chest pain, cough is improving. Patient reports feeling much better. No nausea or vomiting. The patient is seen today 03/26/2020 in follow-up on the selective care unit. He is currently sitting up in a chair at the bedside. He is awake and alert in no acute distress. He is down to 10 L high flow nasal cannula compared to 15 yesterday. Feeling quite a bit better. Blood cultures revealing no growth. White count 5.0. Hemoglobin 16.3. Lymphocytes 0.2. D-dimer 2.14. Sodium 135. Potassium 3.7. Creatinine 0.79. LDH 1243. C-reactive protein 130. Chest x- ray continues to reveal similar findings of bilateral airspace disease. He remains on IV Solu-Medrol, Lovenox, Pepcid, vitamin C, vitamin D, zinc, melatonin. This is day #3 of Remdesivir. Reason seen today 03/27/2020 in follow-up on the selective care unit. He is currently sitting up in chair at the bedside awake and alert in no acute distress. He states he is breathing quite a bit better today compared to yesterday. He is maintaining O2 saturations in the low 90s on 2 L/m per nasal c annula. He was 88% on room air today. Afebrile. White count 5.4. Hemoglobin 15.0. Sodium 1:30. Potassium 4.2. Creatinine 0.82. LDH 963. C-reactive protein 57. This is day #4 of Remdesivir. He remains on IV Solu-Medrol, Lovenox, Pepcid, vitamin C, vitamin D, zinc, melatonin. The patient is seen today 03/28/2020 in follow-up on the selective care unit. Currently sitting up in a chair at the bedside. Awake and alert in no acute distress. Denies any worsening shortness of breath. He has a loose nonproductive cough. No fever chills or night sweats. Still requiring 2 L/m per nasal cannula to maintain O2 saturation low 90s. He is afebrile. Blood culture reveals no growth. Fibrinogen 506. D-dimer 1.20. C-reactive protein 34. He received his last dose of Remdesivir this morning. He remains on IV Solu-Medrol, Lovenox, Pepcid, vitamin C, vitamin D, zinc, melatonin. The patient is seen today 03/29/2020 in follow-up on the selective care unit. He is currently sitting up in chair at the bedside. Awake and alert in no acute distress. No worsening shortness of breath cough or congestion. No fever, chills or night sweats. Maintaining O2 saturations in the low 90s on 4 L/m per nasal cannula. He is afebrile. Hemodynamically stable. Sodium 133. Potassium 5.0. Creatinine 0.72. He is currently on antibiotics in the form of Augmentin. Objective - Vital Signs Vital signs: Vital Signs Temp 98.2 F 03/29/20 12:10 Pulse 98 03/29/20 12:10 Resp 16 03/29/20 12:10 BP 113/74 03/29/20 12:10 Pulse Ox 91 L 03/29/20 12:10 Intake & Output 03/28/20 03/29/20 03/29/20 18:59 06:59 18:59 Intake Total 1080 1000 Output Total 1125 1010 1200 Balance -45 -1010 -200 Weight 64 kg Intake: IV 280 Invasive Line 2 30 Remdesivir (Eua) 100 mg 250 In Sodium Chloride 0.9% 250 ml @ 250 mls/hr IVPB Q24H [facility] Rx#:[id number] Oral 800 1000 Output: Urine 1125 1010 1200 Other: Voiding Method Urinal Urinal # Voids 2 1 # Bowel Movements 1 - Exam GENERAL EXAM: Alert, pleasant, 69-year-old male patient, on 4 L of oxygen and the pulse ox of 91%, comfortable in no apparent distress. HEAD: Normocephalic/atraumatic. EYES: Normal reaction of pupils, equal size. Conjunctiva pink, sclera white. NOSE: Clear with pink turbinates. THROAT: No erythema or exudates. NECK: No masses, no JVD, no thyroid enlargement, no adenopathy. CHEST: No chest wall deformity. Symmetrical expansion. LUNGS: Equal air entry with bilateral scattered rhonchi. CVS: Regular rate and rhythm, normal S1 and S2, no gallops, no murmurs, no rubs ABDOMEN: Soft, nontender. No hepatosplenomegaly, normal bowel sounds, no guarding or rigidity. EXTREMITIES: No clubbing, no edema, no cyanosis, 2+ pulses and upper and lower extremities. MUSCULOSKELETAL: Muscle strength and tone normal. SPINE: No scoliosis or deformity SKIN: No rashes CENTRAL NERVOUS SYSTEM: Alert and oriented -3. No focal deficits, tone is normal in all 4 extremities. PSYCHIATRIC: Alert and oriented -3. Appropriate affect. Intact judgment and insight. - Labs CBC & Chem 7: 03/27/20 08:01 03/29/20 06:10 Labs: Abnormal Lab Results - Last 24 Hours (Table) 03/28/20 03/28/20 03/29/20 Range/Units 17:08 20:33 06:10 Sodium 133 L (137-145) mmol/L Carbon Dioxide 31 H (22-30) mmol/L Glucose 120 H (74-99) mg/dL POC Glucose (mg/dL) 115 H 136 H (75-99) mg/dL 03/29/20 03/29/20 Range/Units 06:14 12:17 Sodium (137-145) mmol/L Carbon Dioxide (22-30) mmol/L Glucose (74-99) mg/dL POC Glucose (mg/dL) 110 H 114 H (75-99) mg/dL Microbiology - Last 24 Hours (Table) 03/24/20 08:33 Blood Culture - Preliminary Blood No Growth after 120 hours Assessment and Plan Assessment: #1. Acute and severe hypoxic respiratory failure related to acute Covid 19 related pneumonia, started on Remdesivir, with onset of symptoms of weeks ago #2. Shortness of breath, severe hypoxemia related to the above #3. Increased inflammatory markers related acute coronavirus infection #4. Spouse positive for Covid 19 infection #5. Never smoker #6. Increased blood calcitonin, rule out possibility of bacterial infection, we will add empiric antibiotics Plan: The patient was seen and evaluated by Dr. Angel Titrate down the FiO2 as tolerated Completed Remdesivir Continue the current treatment plan Possibly home in the a.m. May need home oxygen We will continue to follow I, the cosigning physician, performed a history & physical examination of the patient. Lungs sounds with bilateral scattered rhonchi. Maintaining good O2 saturations in the 90s on 4 L high flow nasal cannula. I discussed the assess ment and plan of care with my nurse practitioner, Bethany Bailey. I attest to the above note as dictated by her.
[2020-03-29 16:58] LABS: Glucose,Whole Blood 124 mg/dL (75-99)
--- NOTE | 2020-03-29 22:54 | P.DS ---
Providers Date of admission: 03/24/20 11:48 Expected date of discharge: 03/29/20 Attending physician: Joseph Wellington Consults: 03/24/20 09:55 Consult Physician Routine Consulting Provider: García Fong Consult Reason/Comments: hypoxic respiratory failure, covid 19 Do you want consulting provider notified?: Yes Primary care physician: Babak Chester [facility] Course: Chief Complaint: Short of breath History of presenting complaint: This is a pleasant 69-year-old patient of Dr. Chester. Patient tested positive for COVID 6 days ago. Patient has been progressively getting more and more short of breath. He was tested positive and his family doctor. His current decreased appetite. Diet. Loss of taste. No diarrhea. Some mild GI. EMS reported patient to be hypoxic and a 70% on room air. Prior to this patient is feeling fine. Patient did not report any fever. He was 91% on 6 L in the ER. Admitted with bilateral pneumonia from COVID 19, acute hypoxic respiratory failure, lactic acidosis, hyponatremia. Started on steroids Lovenox and Pepcid Remdesivir oxygen supplementation. Today-breathing better. Nurse aster called me to say patient been cleared for discharge today by Dr. Fong. He did oxygen oxygen prescription. Patient be discharged on 2.5 mg to 0 to, prednisone taper, Pepcid, zinc, Augmentin. Discussion and discharge planning more than 35 minutes Consultation: Dr. Fong from pulmonary Physical examination: VITAL SIGNS: 97.2, 102, 18, 10 8 x 56, 90% on 5 L GENERAL: Sitting up on it chair, short of breath PSYCH: AO 3, mood and affect normal NEUROLOGICAL: Cranial nerves grossly intact. Moving all 4 limbs. Rest of exam as per nursing and pulmonary INVESTIGATIONS, reviewed in the clinical context: D-dimer 1.20, CRP 34.1 Previous testing White count 4.6 hemoglobin 14.6 platelets 209 lymphocyte 0.4 d-dimer 1.99 sodium 132 potassium 3.6 bun 25 creatinine 1.03 Lactic acid 2.3 LDH 1270 CRP 166.3 albumin 3.10 calcitonin 0.51 EKG tracing personally reviewed by me-normal sinus rhythm, rate of 101 CT angina chest-negative for PE. Diffuse airspace disease bilaterally. Chest x-ray film personally reviewed by me-bilateral infiltrates Assessment: -Acute bilateral pneumonia from COVID 19 diagnosed a week prior to presentation. POA -Acute hypoxic respiratory failure from above-on 4 liter nasal status POA -Lactic acidosis from above -Mild hyponatremia from decreased fluid intake -Clinical dehydration -Hypoalbuminemia-acute phase reactant Disposition: Home Patient Condition at Discharge: Stable Plan - Discharge Summary New Discharge Prescriptions: New Amoxic-Pot Clav 875-125Mg [Augmentin 875-125] 1 each PO Q12HR #10 tab Zinc Sulfate [Orazinc] 220 mg PO DAILY #30 cap Famotidine [Pepcid] 20 mg PO BID #60 tab predniSONE 10 mg PO DAILY #30 tab Cholecalciferol [Vitamin D3] 400 unit PO DAILY #30 tab Rivaroxaban [Xarelto] 2.5 mg PO DAILY #21 tablet Discharge Medication List Amoxic-Pot Clav 875-125Mg [Augmentin 875-125] 1 each PO Q12HR #10 tab 03/29/20 [Rx] Cholecalciferol [Vitamin D3] 400 unit PO DAILY #30 tab 03/29/20 [Rx] Famotidine [Pepcid] 20 mg PO BID #60 tab 03/29/20 [Rx] Rivaroxaban [Xarelto] 2.5 mg PO DAILY #21 tablet 03/29/20 [Rx] Zinc Sulfate [Orazinc] 220 mg PO DAILY #30 cap 03/29/20 [Rx] predniSONE 10 mg PO DAILY #30 tab 03/29/20 [Rx] Follow up Appointment(s)/Referral(s): Joe Cross [NON-STAFF] - [facility],Equipment [NON-STAFF] - (Please call [facility] once home to arrange delivery of oxygen concentrator ) Abdi Gage MD [STAFF PHYSICIAN] - 1-2 days García Fong MD [STAFF PHYSICIAN] - 4 Weeks Patient Instructions/Handouts: Viral Pneumonia (ED), Using Oxygen at Home (ED), Pulse Oximetry (ED) Activity/Diet/Wound Care/Special Instructions: fio2 per dr fong: 4L nasal cannula at all times *RN to Call [facility] at [phone] once oxygen arrives. The hospital will pay for transport to patient's home. Discharge Disposition: HOME SELF-CARE
== END 2020-03-29 18:34 | disposition home health service (06) | DRG 177 ==
LOC: EC 08:18 → 3SCARD 11:48
PROVIDERS: ADMIT Hospitalist; ATTEND Hospitalist
PROC: XW033E5 Introduction of Remdesivir Anti-infective into Peripheral Vein, Percutaneous Approach, New Technology Group 5 (ICD-10-PCS; principal; 2020-03-24)
DX: U07.1 COVID-19 (principal); J96.01 Acute respiratory failure with hypoxia; J12.89 Other viral pneumonia; E87.2 Acidosis; E87.1 Hypo-osmolality and hyponatremia; E88.09 Other disorders of plasma-protein metabolism, not elsewhere classified; K57.90 Diverticulosis of intestine, part unspecified, without perforation or abscess without bleeding; E86.0 Dehydration; K59.00 Constipation, unspecified; Z87.19 Personal history of other diseases of the digestive system; Z98.42 Cataract extraction status, left eye; Z98.41 Cataract extraction status, right eye; Z96.1 Presence of intraocular lens
CPT/HCPCS: 36415; 71045; 71275; 80048; 80053; 82550; 82728; 83605; 83615; 83735; 84145; 85025; 85379; 85384; 85610; 85730; 86140; 87040; 93005; 94760; 96365; 96366; 96375; 99291

== ENCOUNTER 2020-04-05 14:04 | Emergency (ER) | payer MEDICARE ==
[2020-04-05 14:27] VITALS: TEMP 97.7
--- NOTE | 2020-04-05 15:05 | ED ---
General Adult HPI - General Chief complaint: Shortness of Breath Stated complaint: Low spo2 RM 16 Time Seen by Provider: 04/05/20 14:31 Source: patient Mode of arrival: EMS Limitations: no limitations - History of Present Illness Initial comments: 69-year-old male with no significant past medical history presenting to emergency Department with a chief complaint of low oxygen levels. Patient states he was discharged from the hospital about 12 days ago after he was admitted for Covid. Patient states he was discharged with 4 L of oxygen at home. Patient states now he has a home nurse that comes in with the bases. States the nurse came today, and she advised him to come to the emergency department because she "did not like the way it he was breathing". Patient denies any chest pain, shortness of breath, sore throat, sinus congestion, rhinorrhea. Denies any nausea vomiting diarrhea. Patient does report feeling thirsty not drinking enough liquids. Patient has no complaints at this time. - Related Data Home Medications Medication Instructions Recorded Confirmed predniSONE See Taper PO DAILY 04/05/20 04/05/20 Previous Rx's Medication Instructions Recorded Cholecalciferol [Vitamin D3] 400 unit PO DAILY #30 tab 03/29/20 Famotidine [Pepcid] 20 mg PO BID #60 tab 03/29/20 Rivaroxaban [Xarelto] 2.5 mg PO DAILY #21 tablet 03/29/20 Zinc Sulfate [Orazinc] 220 mg PO DAILY #30 cap 03/29/20 Allergies Allergy/AdvReac Type Severity Reaction Status Date / Time No Known Allergies Allergy Verified 04/05/20 16:14 Review of Systems ROS Statement: Those systems with pertinent positive or pertinent negative responses have been documented in the HPI. ROS Other: All systems not noted in ROS Statement are negative. Past Medical History Past Medical History: Respiratory Disorder Additional Past Medical History / Comment(s): CURRENT: RECTAL BLEEDING, HGB HAS DROPPED FROM 15 TO 7 IN THE PAST SEVERAL MONTHS. DIVERTICULOSIS. History of Any Multi-Drug Resistant Organisms: None Reported Past Surgical History: No Surgical Hx Reported Additional Past Surgical History / Comment(s): BILATERAL CATARACT WITH IMPLANTS Past Anesthesia/Blood Transfusion Reactions: No Reported Reaction Past Psychological History: No Psychological Hx Reported Smoking Status: Never smoker Past Alcohol Use History: None Reported Past Drug Use History: None Reported General Exam Limitations: no limitations General appearance: alert, in no apparent distress Head exam: Present: atraumatic, normocephalic, normal inspection Eye exam: Present: normal appearance, PERRL, EOMI Pupils: Present: normal accommodation ENT exam: Present: normal exam, normal oropharynx, mucous membranes dry, TM's normal bilaterally, normal external ear exam Neck exam: Present: normal inspection, full ROM. Absent: tenderness, meningismus Respiratory exam: Present: normal lung sounds bilaterally. Absent: respiratory distress, wheezes, rales, rhonchi, stridor, decreased breath sounds Cardiovascular Exam: Present: normal rhythm, tachycardia, normal heart sounds GI/Abdominal exam: Present: soft. Absent: distended, tenderness, guarding, rebound Extremities exam: Present: normal inspection, full ROM, normal capillary refill. Absent: tenderness, pedal edema, joint swelling Back exam: Present: normal inspection, full ROM. Absent: tenderness, CVA tenderness (R), CVA tenderness (L) Neurological exam: Present: alert, oriented X3, normal gait Psychiatric exam: Present: normal affect, normal mood. Absent: depressed, agitated Skin exam: Present: warm, dry, intact, normal color Course Vital Signs 04/05/20 04/05/20 04/05/20 14:25 14:30 15:00 Temperature 97.7 F Pulse Rate 115 H 113 H 116 H Respiratory 24 19 27 H Rate Blood Pressure 122/94 122/94 110/85 O2 Sat by Pulse 96 96 95 Oximetry 04/05/20 04/05/20 04/05/20 15:30 16:00 17:00 Temperature Pulse Rate 115 H 122 H 117 H Respiratory 24 22 23 Rate Blood Pressure 131/91 108/79 102/52 O2 Sat by Pulse 91 L 95 98 Oximetry 04/05/20 04/05/20 17:30 18:00 Temperature Pulse Rate 107 H 105 H Respiratory 22 21 Rate Blood Pressure 109/84 111/95 O2 Sat by Pulse 100 99 Oximetry - Reevaluation(s) Reevaluation #1: 04/05/20 18:11 Medical records reviewed EKG Findings - EKG Comments: EKG Findings:: Sinus tachycardia. Ventricular rate 115, MN 144, QRS 84, QTC 448. Medical Decision Making - Medical Decision Making 69-year-old male presenting to emergency Department with chief complaint of low oxygen levels. On initial evaluation, patient is well-appearing. He is saturating at 96% on 4 L of oxygen. He is also on 4 L of oxygen at home after he was discharged from the hospital 12 days ago. He was admitted due to Covid. Patient was initially tachycardic so a d-dimer was obtained which was elevated at 1.46. However, his d-dimer was constantly elevated even since she was admitted to the hospital. CT of the chest obtained reveals bilateral diffuse infiltrates which appeared the same from the most recent CT imaging from 2 weeks ago. CBC is unremarkable. The LDH is improving compared to his most recent re sults. C-reactive protein is within normal limits. Patient did have a lactic acid of 2.2 which I suspect is secondary to decreased fluid intake which was remarkable by the patient himself. He also did have dry mucous members. Patient was given 1 L of IV fluids. On reevaluation, patient reports still feeling well. His heart rate did improve to 110. He continues to be asymptomatic.Patient states that he would like to go home. Return parameters were thoroughly discussed the patient was understanding and agreeable. Case discussed with physician. - Lab Data Result diagrams: 04/05/20 15:20 04/05/20 15:20 Lab Results 04/05/20 04/05/20 04/05/20 Range/Units 15:20 15:20 15:20 WBC 8.2 (3.8-10.6) k/uL RBC 5.46 (4.30-5.90) m/uL Hgb 15.5 (13.0-17.5) gm/dL Hct 48.1 (39.0-53.0) % MCV 88.2 (80.0-100.0) fL MCH 28.5 (25.0-35.0) pg MCHC 32.3 (31.0-37.0) g/dL RDW 15.5 (11.5-15.5) % Plt Count 226 (150-450) k/uL MPV 7.8 Neutrophils % 86 % Lymphocytes % 6 % Monocytes % 5 % Eosinophils % 1 % Basophils % 0 % Neutrophils # 7.1 (1.3-7.7) k/uL Lymphocytes # 0.5 L (1.0-4.8) k/uL Monocytes # 0.4 (0-1.0) k/uL Eosinophils # 0.1 (0-0.7) k/uL Basophils # 0.0 (0-0.2) k/uL PT 10.5 (9.0-12.0) sec INR 1.0 (<1.2) APTT 25.0 (22.0-30.0) sec D-Dimer 1.49 H (<0.60) mg/L FEU Sodium 133 L (137-145) mmol/L Potassium 4.2 (3.5-5.1) mmol/L Chloride 99 (98-107) mmol/L Carbon Dioxide 31 H (22-30) mmol/L Anion Gap 3 mmol/L BUN 13 (9-20) mg/dL Creatinine 0.96 (0.66-1.25) mg/dL Est GFR (CKD-EPI)AfAm >90 (>60 ml/min/1.73 sqM) Est GFR (CKD-EPI)NonAf 80 (>60 ml/min/1.73 sqM) Glucose 110 H (74-99) mg/dL Lactic Ac Sepsis Rflx Plasma Lactic Acid Chuy (0.7-2.0) mmol/L Calcium 8.8 (8.4-10.2) mg/dL Magnesium 2.1 (1.6-2.3) mg/dL Total Bilirubin 1.0 (0.2-1.3) mg/dL AST 48 (17-59) U/L ALT 51 H (4-49) U/L Alkaline Phosphatase 78 (38-126) U/L Lactate Dehydrogenase 902 H (313-618) U/L C-Reactive Protein 6.5 (<10.0) mg/L Total Protein 6.6 (6.3-8.2) g/dL Albumin 3.2 L (3.5-5.0) g/dL 04/05/20 04/05/20 Range/Units 15:20 16:06 WBC (3.8-10.6) k/uL RBC (4.30-5.90) m/uL Hgb (13.0-17.5) gm/dL Hct (39.0-53.0) % MCV (80.0-100.0) fL MCH (25.0-35.0) pg MCHC (31.0-37.0) g/dL RDW (11.5-15.5) % Plt Count (150-450) k/uL MPV Neutrophils % % Lymphocytes % % Monocytes % % Eosinophils % % Basophils % % Neutrophils # (1.3-7.7) k/uL Lymphocytes # (1.0-4.8) k/uL Monocytes # (0-1.0) k/uL Eosinophils # (0-0.7) k/uL Basophils # (0-0.2) k/uL PT (9.0-12.0) sec INR (<1.2) APTT (22.0-30.0) sec D-Dimer (<0.60) mg/L FEU Sodium (137-145) mmol/L Potassium (3.5-5.1) mmol/L Chloride (98-107) mmol/L Carbon Dioxide (22-30) mmol/L Anion Gap mmol/L BUN (9-20) mg/dL Creatinine (0.66-1.25) mg/dL Est GFR (CKD-EPI)AfAm (>60 ml/min/1.73 sqM) Est GFR (CKD-EPI)NonAf (>60 ml/min/1.73 sqM) Glucose (74-99) mg/dL Lactic Ac Sepsis Rflx Y Plasma Lactic Acid Chuy 2.2 H* (0.7-2.0) mmol/L Calcium (8.4-10.2) mg/dL Magnesium (1.6-2.3) mg/dL Total Bilirubin (0.2-1.3) mg/dL AST (17-59) U/L ALT (4-49) U/L Alkaline Phosphatase (38-126) U/L Lactate Dehydrogenase (313-618) U/L C-Reactive Protein (<10.0) mg/L Total Protein (6.3-8.2) g/dL Albumin (3.5-5.0) g/dL Disposition Clinical Impression: COVID-19, Tachycardia Disposition: HOME SELF-CARE Condition: Stable Instructions (If sedation given, give patient instructions): Acute Cough (ED) Additional Instructions: Follow with her primary care physician. Continue using the oxygen at home. R eturn to emergency department if symptoms worsen. Is patient prescribed a controlled substance at d/c from ED?: No Referrals: None,Stated [Primary Care Provider] - 1-2 days Time of Disposition: 18:15
[2020-04-05 15:48] LABS: Basophils % (A) 0 %; Eosinophils # (A) 0.1 k/uL (0-0.7); Eosinophils % (A) 1 %; HCT 48.1 % (39.0-53.0); HGB 15.5 gm/dL (13.0-17.5); Lymphocytes # (A) 0.5 k/uL (1.0-4.8); Lymphocytes % (A) 6 %; MCH 28.5 pg (25.0-35.0); MCHC 32.3 g/dL (31.0-37.0); MCV 88.2 fL (80.0-100.0); Mean Platelet Volume 7.8; Monocytes # (A) 0.4 k/uL (0-1.0); Monocytes % (A) 5 %; Neutrophils # (A) 7.1 k/uL (1.3-7.7); Neutrophils % (A) 86 %; Platelet Count 226 k/uL (150-450); RBC 5.46 m/uL (4.30-5.90); RDW 15.5 % (11.5-15.5); WBC 8.2 k/uL (3.8-10.6)
--- NOTE | 2020-04-05 15:49 | XR ---
EXAMINATION TYPE: XR chest 1V portable DATE OF EXAM: 04/05/2020 COMPARISON: 03/26/2020 HISTORY: Short of breath TECHNIQUE: FINDINGS: There is extensive coarse interstitial density throughout the lungs. Heart size is normal. There are no hilar masses. Mediastinum is within normal limits. There is no pleural effusion. IMPRESSION: Advanced fibrosis unchanged. Normal heart.
[2020-04-05 16:03] LABS: Prothrombin Time 10.5 sec (9.0-12.0)
[2020-04-05 16:12] LABS: ALT 51 U/L (4-49); AST 48 U/L (17-59); African American GFR (CKD) >90 (>60 ml/min/1.73 sqM); Albumin 3.2 g/dL (3.5-5.0); Alkaline Phosphatase 78 U/L (38-126); Anion Gap 3 mmol/L; Blood Urea Nitrogen 13 mg/dL (9-20); C Reactive Protein 6.5 mg/L (<10.0); Calcium 8.8 mg/dL (8.4-10.2); Carbon Dioxide 31 mmol/L (22-30); Chloride 99 mmol/L (98-107); Glucose 110 mg/dL (74-99); LDH 902 U/L (313-618); Magnesium 2.1 mg/dL (1.6-2.3); Non-African American GFR(CKD) 80 (>60 ml/min/1.73 sqM); Sodium 133 mmol/L (137-145); Total Protein 6.6 g/dL (6.3-8.2)
[2020-04-05 16:15] LABS: Potassium 4.2 mmol/L (3.5-5.1)
[2020-04-05 16:20] LABS: D-Dimer 1.49 mg/L FEU (<0.60)
[2020-04-05] MEDS ORDERED: SODIUM CHLORIDE 0.9% 1,000 ML IV STA (16:57)
--- NOTE | 2020-04-05 17:45 | CT ---
EXAMINATION TYPE: CT chest angio for PE DATE OF EXAM: 04/05/2020 COMPARISON: 03/24/2020 HISTORY: Shortness of breath, Covid+, and elevated d-dimer. CT DLP: 325 mGycm Automated exposure control for dose reduction was used. CONTRAST: Performed with IV Contrast, patient injected with 64ml mL of Isovue 370. There are 3-D post processed images. There is extensive interstitial and airspace infiltrate throughout both lungs. Heart is top normal in size. There is hiatal hernia. There is no pleural effusion. There are no hilar masses. There is norm al contrast opacification of the pulmonary arteries. There are no filling defects. Thoracic aorta is intact. There is no aneurysm or dissection. Thoracic spine is intact. Sternum is intact. IMPRESSION: No evidence of pulmonary embolism. Extensive pulmonary infiltrates consistent with pneumonia that is not significantly different than ol d exam.
[2020-04-05 18:10] VITALS: BP 111/95
[2020-04-05 19:32] VITALS: PULSE 102; RESP 18
[2020-04-05 23:09] LABS: Ferritin 305.9 ng/mL (22.0-322.0)
== END 2020-04-05 19:40 | disposition home or self-care (01) ==
LOC: EC 14:04
DX: U07.1 COVID-19 (principal); R00.0 Tachycardia, unspecified; R79.89 Other specified abnormal findings of blood chemistry; R91.8 Other nonspecific abnormal finding of lung field; Z79.52 Long term (current) use of systemic steroids
CPT/HCPCS: 36415; 93005; 85379; 80053; 82728; 83605; 83615; 83735; 85025; 85610; 85730; 86140; 87040; 84145; 71045; 71275; 99285; 96360; Q9967

== ENCOUNTER 2022-04-09 10:16 | Day surgery (SDC) | payer MEDICARE ==
[2022-04-08 08:33] VITALS: BMI 28.7
[~2022-04-09 10:16] MED LIST: LACTATED RINGERS 1,000 ML IV SCH
[2022-04-09 10:50] VITALS: TEMP 97.5
[2022-04-09] MEDS ORDERED: PROPOFOL 10 MG/ML 20 ML VIAL IV ONE (12:05)
--- NOTE | 2022-04-09 12:20 | P.PCN ---
Date of Procedure: 04/09/22 Postoperative Diagnosis: BRIEF HISTORY: Patient is a 71-year-old pleasant white male scheduled for an elective colonoscopy as a part of screening for colon cancer and evaluation of prior history of colon polyps PROCEDURE PERFORMED: Colonoscopy with biopsy. PREOPERATIVE DIAGNOSIS: Screening for colon cancer/history of colon polyps screening for colon cancer/. IV sedation per Anesthesia. PROCEDURE: After informed consent was obtained, the patient, was brought into the endoscopy unit. IV sedation was administered by Anesthesia under continuous monitoring. Digital rectal examination was normal. Initially the Olympus CF-160 flexible video colonoscope was then inserted in the rectum, gradually advanced into the cecum without any difficulty. Careful examination was performed as the scope was gradually being withdrawn. Ileocecal valve and the appendiceal orifice were visualized and appeared normal. Prep was excellent. Mucosa of the cecum had a 5 mm polyp that was removed by cold biopsy. Rest of the, ascending colon, transverse colon, descending colon, sigmoid colon, and rectum appeared normal. Scattered sigmoid diverticulosis seen. There was mild patchy areas of erythema in the sigmoid colon extending from from 25-30 cm from the anal verge that was biopsied. Retroflexion was performed in the rectum and no lesions were seen. The patient tolerated the procedure well. IMPRESSION: 3 mm cecal polyp status post cold biopsy Scattered sigmoid diverticulosis Mild patchy areas of erythema in the sigmoid colon extending from 25-30 cm from the anal verge status post biopsy. RECOMMENDATIONS: Findings of this examination were discussed with the patient his as well as his family. He was advised to follow with the biopsy results. If the biopsy result adenoma he can have a repeat colonoscopy in 5 years..
[2022-04-09 12:38] VITALS: BP 112/74; PULSE 94; RESP 14
== END 2022-04-09 12:59 | disposition home or self-care (01) ==
LOC: ORWHC2ENDO 10:16
PROVIDERS: ATTEND Internal Medicine Gastroenterology
DX: Z12.11 Encounter for screening for malignant neoplasm of colon (principal); D12.0 Benign neoplasm of cecum; K52.9 Noninfective gastroenteritis and colitis, unspecified; K57.30 Diverticulosis of large intestine without perforation or abscess without bleeding; Z87.19 Personal history of other diseases of the digestive system; Z98.890 Other specified postprocedural states
CPT/HCPCS: 45380; J2704; 88305